=== PATIENT | male | born 1965 | race Caucasian/White ===

== ENCOUNTER → 2018-11-17 08:09 | Outpatient (CLI) | payer OTHER, SELFPAY ==
--- NOTE | 2018-11-17 | DI.US.S_ITS ---
PROCEDURE: US ABD AORTA ANEURYSM SCREEN INDICATIONS: ABDOMINAL AORTIC ANEURYSM SCREENING TECHNIQUE: Real time scanning was performed of the aorta and iliac arteries, with image documentation. COMPARISON: [facility], CT, ABDOMEN/PELVIS WITH CONTRAST, 08/01/2008, 9:27. FINDINGS: Aorta: Proximal aortic was obscured by bowel gas. Mid-aorta measures 2.3 cm. Distal aortic diameter is 2.2 cm. Iliac arteries: Right common iliac artery measures 1.4 cm. Left common iliac artery measures 1.7 cm. IMPRESSION: No evidence of abdominal aortic aneurysm. Dictated by: Gavino Wiley M.D. on 11/17/2018 at 9:22 Approved by: Gavino Wiley M.D. on 11/17/2018 at 9:34
== END ==
PROVIDERS: Family Provider Family Medicine; PCP Family Medicine; Visit Provider Family Medicine
DX: Z82.49 Family history of ischemic heart disease and other diseases of the circulatory system (principal)
CPT/HCPCS: 76706

== ENCOUNTER → 2019-03-02 15:27 | Outpatient (CLI) | payer OTHER, SELFPAY ==
--- NOTE | 2019-03-02 | DI.US.S_ITS ---
PROCEDURE: US PERIPH VENOUS LOW EXTREM LT INDICATIONS: DVT TECHNIQUE: Real-time imaging, as well as color and pulse Doppler interrogation, were performed of the lower extremity deep veins from the inguinal ligament to the popliteal fossa. COMPARISON: None. FINDINGS: There is left lower extremity D[place], with patient treatment by anticoagulation. Currently the study shows DVT within the superficial femoral vein and popliteal vein, partially occlusive from the mid superficial femoral vein into the calf area. IMPRESSION: Patient receiving ongoing therapy for DVT diagnosed [place]. Recurrent thrombosis seen and is within the popliteal vein and the superficial femoral vein. No comparison is available for review. The partially occlusive thrombus persists from the mid superficial femoral vein through the popliteal vein into the trifurcation region of the calf. Dictated by: Mike Foley M.D. on 03/02/2019 at 17:08 Approved by: Mike Foley M.D. on 03/02/2019 at 17:10
== END ==
PROVIDERS: PCP Family Medicine; Visit Provider Family Medicine
DX: I82.432 Acute embolism and thrombosis of left popliteal vein (principal); I82.412 Acute embolism and thrombosis of left femoral vein; I82.4Z2 Acute embolism and thrombosis of unspecified deep veins of left distal lower extremity
CPT/HCPCS: 93971

== ENCOUNTER → 2019-05-09 10:07 | Outpatient (CLI) | payer OTHER, SELFPAY ==
--- NOTE | 2019-05-09 | DI.US.S_ITS ---
PROCEDURE: US PERIP VENOUS LOW EXTREM LT INDICATIONS: Previously documented lower extremity DVT, evaluate for resolution. TECHNIQUE: Real-time imaging, as well as color and pulse Doppler interrogation, were performed of the lower extremity deep veins from the inguinal ligament to the popliteal fossa. COMPARISON: [facility], [facility] VENOUS LOW EXTREM LT, 03/02/2019, 16:42. FINDINGS: There is only a small degree of nonocclusive thrombus remaining at the left lower extremity popliteal vein extending to the posterior tibial vein. This represents a significant improvement from the comparison study when residual thrombus could be seen in the superficial femoral vein extending through the popliteal vein into the trifurcation region of the left calf. IMPRESSION: Only a small residual nonocclusive thrombus is seen within the popliteal vein extending to the left posterior tibial vein. Significant improvement from the comparison. Dictated by: Mike Foley M.D. on 05/09/2019 at 11:19 Approved by: Mike Foley M.D. on 05/09/2019 at 11:22
--- NOTE | 2019-10-31 14:07 | ONC.MSW ---
Description: New Referral Navigation Activity: [employer] reviewed referral and assessed urgency/acuity. Forwarded to scheduling for next available new consult appt.
== END ==
PROVIDERS: PCP Family Medicine; Visit Provider Family Medicine
DX: I82.432 Acute embolism and thrombosis of left popliteal vein (principal); I82.442 Acute embolism and thrombosis of left tibial vein
CPT/HCPCS: 93971

== ENCOUNTER → 2019-11-01 07:26 | Outpatient (CLI) | payer OTHER, SELFPAY ==
--- NOTE | 2019-11-01 | DI.US.S_ITS ---
PROCEDURE: [facility] VENOUS LOW EXTREM LT INDICATIONS: HISTORY OF DVT WITH LEG PAIN TECHNIQUE: Real-time imaging, as well as color and pulse Doppler interrogation, were performed of the lower extremity deep veins from the inguinal ligament to the popliteal fossa. COMPARISON: [facility], [facility] VENOUS LOW EXTREM LT, 05/09/2019, 10:25. [facility], [facility] VENOUS LOW EXTREM LT, 03/02/2019, 16:42. FINDINGS: There is nonocclusive filling defect in the distal popliteal vein to the trifurcation, consistent with chronic DVT. The common femoral and femoral veins are normally compressible, and free of intraluminal thrombus. IMPRESSION: Residual nonocclusive chronic DVT in the distal popliteal vein to trifurcation. Dictated by: Eriberto Mcneal M.D. on 11/01/2019 at 9:45 Approved by: Eriberto Mcneal M.D. on 11/01/2019 at 9:48
== END ==
PROVIDERS: PCP Family Medicine; Visit Provider Family Medicine
DX: M79.605 Pain in left leg (principal); I82.532 Chronic embolism and thrombosis of left popliteal vein
CPT/HCPCS: 93971

== ENCOUNTER → 2019-11-02 13:39 | Oncology outpatient (ONC) | payer OTHER, SELFPAY ==
[2019-11-02 14:16] VITALS: BP 137/86; PULSE 83; RESP 18; TEMP 37; O2SAT 98
--- NOTE | 2019-11-02 16:30 | ONC.CONS ---
History of Present Illness - Data of Consult Consult date: 11/02/19 Primary Care Provider: Shelli Carrasquillo MD - Consult Narrative Narrative: Diagnosis: Left lower extremity DVT in January 2019 History of present illness: Humberto Chew is a 54 year old male who is referred for further evaluation regarding DVT. 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 He works a 4 week on, 4 week off schedule. Each of these work cycles is accompanied by a prolonged airline flight lasting 24-27 hours. In January, he was traveling to [place] [facility]. On arrival there, he noticed some erythema and swelling in his left lower leg. It was initially thought perhaps to be an ankle injury. However over the next few days, the erythema progressed up the leg. There was increased swelling and pain. It was then thought that perhaps it was a spider bite. He then was transferred off of the oil [employer] to a local hospital. An ultrasound showed extensive DVT involving his left leg. He was started on anticoagulation with what sounds like low-molecular weight or unfractionated heparin and later transition to Xarelto. During that time, he developed an infection at the site of an IV on his arm. He required antibiotics for that but did eventually recover. Since he has been on the Xarelto, the pain and swelling in his leg has improved. He still has some occasional cramping. He notes trace edema on that side as well. He has not had any bleeding complications. He denies any epistaxis or gingival bleeding. No blood in the urine or stool. He has not had any shortness of breath cough for chest pain. No dizziness or lightheadedness. He denies any prior history of thrombosis. He did not have any trauma to the leg. He is not a smoker. He has had follow-up ultrasounds that have shown diminished but persistent, chronic appearing clot involving the distal popliteal vein. Since he has been on the Xarelto, he has noted some episodes of numbness and paresthesias involving his right hand and forearm. He has noticed increased cramps in his legs. He has been taking some electrolyte supplements as well as drinking a lot of fluids but it does not seem to been helping. He wonders if the Xarelto is causing the symptoms. His past medical history is positive for having a tonsillectomy as a child. He has not had any other surgeries. He has otherwise been quite healthy. His only prescription medication is Xarelto. He does he take some vitamins and electrolytes supplements. He is not allergic to any medications. Social history: He does not smoke or use alcohol. He does exercise regularly. 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 Currently, he has been doing less heavy weights and more aerobic type work. 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 Family history is negative for any thrombotic history. CC: Vimal Simmons MD Home Medications and Allergies Home Medications Medication Instructions Recorded Confirmed Type magnesium, potassium aspartate 1 cap PO DAILY 11/02/19 11/02/19 History ezqxutxensos-oiaodlfc-aejyuo 1 tab PO DAILY 11/02/19 11/02/19 History [Multivitamin 50 Plus] rivaroxaban [Xarelto] 20 mg DAILY 11/02/19 11/02/19 History Review of Systems - Patient Self-Reported Symptoms SR eye issues: Vision changes SR ears, nose, mouth, throat issues: Cough SR respiratory issues: Cough, Mucous SR Gastrointestinal issues: Diarrhea SR Musculoskeletal issues: Joint pain or swelling, Muscle pain or cramps, Cold hands or feet SR Neuro issues: Numbness or tingling Constitutional: normal activity level, normal exercise tolerance Ears, nose, mouth, throat: no lightheadedness, no epistaxis Cardiovascular: no chest pain, no palpitations, no syncope, no dyspnea on exertion Respiratory: no shortness of breath, no hemoptysis Gastrointestinal: no change in appetite, no abdominal pain Musculoskeletal: swelling, no redness, no weakness, no atrophy Integumentary: no rash Endocrine: no hormone therapy Hematologic/Lymphatic: no anemia, no enlarged lymph nodes Exam Vital signs: Vital Signs Temp Pulse Resp BP Pulse Ox 11/02/19 14:16 98.6 F 83 18 137/86 98 Intake and Output 11/02/19 11/02/19 11/02/19 07:59 15:59 23:59 Other: Weight 109.7 kg Patient Weight 11/02/19 23:59 Weight 109.7 kg - Constitutional positive no acute distress, positive average body habitus Comments: He is fit appearing. - Routine HEENT Exam Head: Present: normocephalic, atraumatic Eye: Present: EOMI, PERRL. Absent: conjunctival icterus, scleral injection ENT: Present: mucous membranes moist, oropharynx clear - Routine Neck Exam Present: supple. Absent: lymphadenopathy, thyromegaly - Routine Chest/Breast/Axilla Exam Axillae: Absent: lymphadenopathy - Routine Respiratory Exam Present: Clear to auscultation bilaterally. Absent: rales, wheezes - Routine Cardiovascular Exam Present: RRR, S1, S2. Absent: murmur - Routine Abdominal Exam Present: soft, normoactive bowel sounds. Absent: tenderness, organomegaly, mass - Routine Extremities Exam Absent: cyanosis, clubbing, edema, palpable cord - Routine Back/Spine Exam Back/Spine: Absent: vertebral tenderness - Routine Skin Exam Present: intact. Absent: petechiae, rash - Routine Neurological Exam Present: alert, oriented X3 - Routine Psychiatric Exam Present: normal affect, normal thought process Assessment and Plan (1) DVT (deep venous thrombosis) Current visit: Yes Status: Acute 54-year-old man with an episode of DVT involving his left lower extremity. This was provoked by a prolonged airplane flight. He has had improvement with anticoagulation. He has not had any bleeding complications. He is having some symptoms that he think might be related to the Xarelto however. With regards to duration of anticoagulation, for provoked 1st DVT, I think 3 months of therapy is generally adequate. He does have some findings of a chronic DVT in the left but I don't think are severe enough to require indefinite anticoagulation. His risk factor for thrombosis was prolonged airline flight. This is in his case not entirely reversible and his risk for having another thrombosis with prolonged flying is present. He has been using a compression garment while flying. I've recommended that he continue with this. This will certainly help to reduce symptoms of post phlebitic syndrome. Given that he is having some potential side effects of his anticoagulation and has completed an adequate course of treatment, I think it's reasonable to stop his anticoagulation but to have him take a dose of Xarelto on days when he is flying and for couple of days after. I think this will help reduce his risk of thrombosis during a prolonged airline flight but hopefully should reduce his risk of bleeding while he is working. I would be reasonable to take aspirin daily on days that he is not taking Xarelto. Given that he did have a provoked episode and does not have a family history, I don't think testing for inherited or acquired hypercoagulable syndromes would be helpful. If he does have a 2nd episode of thrombosis, then he would be candidate for indefinite anticoagulation. I have not scheduled a follow-up appointment for him here but would be happy to see him again in the future should new questions arise.
== END ==
LOC: ONC 13:40
PROVIDERS: PCP Family Medicine
DX: I82.402 Acute embolism and thrombosis of unspecified deep veins of left lower extremity (principal); Z79.01 Long term (current) use of anticoagulants
CPT/HCPCS: 99205; 99215

== ENCOUNTER → 2020-09-25 07:06 | Outpatient (CLI) | payer OTHER, SELFPAY ==
--- NOTE | 2020-09-25 | DI.MRI.S_ITS ---
PROCEDURE: MR SHOULDER RT WO CON INDICATIONS: CERVICAL RADUCUOPATHY,RIGHT SHOULDER PAIN TECHNIQUE: Noncontrast oblique coronal T2 fast spin echo with fat saturation, oblique sagittal T1 spin echo and T2 fast spin echo with fat saturation, axial T1 spin echo and T2 fast spin echo with fat saturation through the shoulder. COMPARISON: None. FINDINGS: Image quality: Excellent. Rotator cuff: There is full-thickness rupture involving distal supraspinatus at its insertion on humeral head with up to 1.9 cm medial retraction of torn tendon fibers to the level of acromion. Tendinosis and low to moderate grade articular surface partial thickness tear involving distal infraspinatus is also seen at its insertion on the humeral head extending to musculotendinous junction. There is distal subscapularis tendinosis and low-grade intrasubstance partial-thickness tear. Sagittal images demonstrate no significant muscle atrophy. Bones and bursae: No bone marrow contusions or fractures. Moderate acromioclavicular joint osteoarthritic changes are seen with downward osteophyte formation depressing the musculotendinous junction of supraspinatus. Small to moderate amount of joint effusion and subacromial subdeltoid bursal fluid is seen. Capsule and soft tissues: In the absence of intra-articular contrast, subtle signal abnormality involving posterior superior labrum at 10 to 11 o'clock position is seen. The glenohumeral ligaments appear intact. The long head of the biceps tendinosis and low to moderate grade partial-thickness tear is also noted. The rotator interval appears normal, without fibrosis. The coracohumeral ligament is normal in thickness. IMPRESSION: 1. Full-thickness rupture of distal supraspinatus at its insertion on the humeral head with up to 1.9 cm medial retraction of torn tendon fibers to the level of acromion. Distal infraspinatus tendinosis and low to moderate grade articular surface partial-thickness tear extending to musculotendinous junction. Distal subscapularis tendinosis and low-grade intrasubstance partial-thickness tear. 2. Moderate acromioclavicular joint osteoarthritis. Small amount of joint effusion and subacromial subdeltoid bursal fluid. 3. Suggestion of posterior superior labral tear at 10 to 11 o'clock position. 4. Tendinosis and low to moderate grade partial-thickness tear involving proximal intra-articular portion of long head of biceps. Dictated by: Hussain Schafer M.D. on 09/25/2020 at 9:01 Approved by: Hussain Schafer M.D. on 09/25/2020 at 9:14
--- NOTE | 2020-09-25 | DI.MRI.S_ITS ---
PROCEDURE: MR CERVICAL SPINE WO CON INDICATIONS: CERVICAL RADUCUOPATHY, RIGHT SHOULDER PAIN TECHNIQUE: Noncontrast sagittal T1 spin echo and T2 fast spin echo, sagittal STIR, foraminal oblique sagittal T2 fast spin echo, and axial gradient echo or T2 fast spin echo through the cervical spine. COMPARISON: [facility], CERVICAL SPINE 2 OR 3 VIEWS, 05/22/2017, 17:19. FINDINGS: Image quality: Diagnostic, with note made of motion artifact. Alignment and Curvature: There is straightening of the normal cervical lordosis. No focal AP alignment abnormality is seen. Bone Marrow: Marrow demonstrates normal overall signal. Spinal Cord: Visualized spinal cord has normal size and signal. No cerebellar tonsillar herniation. Paraspinous Soft Tissues: No paravertebral masses. Prevertebral soft tissues are normal in thickness. C2-C3: The disc height is well-preserved. Loss of disc signal is seen at this level. A mild degree of generalized disc osteophyte complex is seen. Mild to moderate left-sided and no right-sided facet hypertrophy is seen. There is mild to moderate left-sided and no right-sided neural foraminal narrowing seen. The central canal is widely patent. C3-C4: The disc height is well-preserved. Loss of disc signal is seen at this level. A mild degree of generalized disc osteophyte complex is seen. Mild facet joint hypertrophy is seen. There is moderate to severe left-sided and at least moderate right-sided neural foraminal narrowing seen. Mild central canal narrowing is seen. C4-C5: The disc height is well-preserved. Loss of disc signal is seen at this level. Moderate generalized disc osteophyte complex is seen. There is mild to moderate right-sided and moderate left-sided facet hypertrophy seen. There is moderate to severe left-sided and at least moderate right-sided neural foraminal narrowing seen. Mild central canal narrowing is seen. C5-C6: Loss of disc signal is seen. Minimal loss of disc height is seen. Mild to moderate disc osteophyte complex is seen. There is mild to moderate right-sided and moderate left-sided facet hypertrophy seen. There is moderate to severe bilateral neural foraminal narrowing seen, right worse than left. Mild central canal narrowing is seen. C6-C7: Moderate loss of disc height is seen. Loss of disc signal is seen. Moderate generalized disc osteophyte complex is seen. Mild to moderate facet hypertrophy is seen. At least moderate bilateral neural foraminal narrowing can be seen. Mild to moderate central canal narrowing is seen. C7-T1: No significant abnormality is seen. IMPRESSION: Multiple levels of cervical spine degenerative change are seen, which are most prominent inferiorly. Dictated by: Joseph Camargo M.D. on 09/25/2020 at 8:03 Approved by: Joseph Camargo M.D. on 09/25/2020 at 8:07
== END ==
PROVIDERS: PCP Family Medicine; Referring Provider Family Medicine; Visit Provider Family Medicine
DX: M47.22 Other spondylosis with radiculopathy, cervical region (principal); M25.511 Pain in right shoulder; M75.121 Complete rotator cuff tear or rupture of right shoulder, not specified as traumatic; M19.011 Primary osteoarthritis, right shoulder; S46.111A Strain of muscle, fascia and tendon of long head of biceps, right arm, initial encounter
CPT/HCPCS: 72141; 73221

== ENCOUNTER → 2021-04-22 08:29 | Outpatient (CLI) | payer OTHER, SELFPAY ==
[2021-04-22 11:40] LABS: COVID19 -Nasal RAPID Negative (Negative)
== END ==
PROVIDERS: PCP Family Medicine; Visit Provider Physician Assistant
DX: Z01.812 Encounter for preprocedural laboratory examination (principal); Z20.822 Contact with and (suspected) exposure to COVID-19
CPT/HCPCS: 87635

== ENCOUNTER → 2021-04-24 07:41 | Outpatient (CLI) | payer OTHER, SELFPAY ==
--- NOTE | 2021-04-24 | DI.NM.S_ITS ---
PROCEDURE: NM SEA PERF SPECT REST & STR Rest and exercise myocardial perfusion SPECT with gated imaging and ejection fraction RADIOPHARMACEUTICAL: 13.4 mCi Tc-99m sestamibi IV at rest and 24.7 mCi Tc-99m sestamibi IV at peak exercise. A one day-protocol was performed. INDICATIONS: Other chest pain TECHNIQUE: Radiopharmaceutical was injected at peak stress test, and also at rest. SPECT images were obtained. SPECT myocardial perfusion images were displayed in short axis, horizontal long axis, and vertical long axis views. Gated images were reviewed using [employer] software. COMPARISON: None. CARDIAC STRESS: A standard [place] treadmill exercise tolerance test was performed by the patient under the supervision of an attending staff. The patient exercised for 10 minutes and 40 seconds; functional aerobic impairment (NORTH) is -14%. Hemodynamic data: There is normal blood pressure and heart rate response to exercise stress. Patient achieved 98% of maximum predicted heart rate at peak exercise. Symptoms: Patient denied chest pain during exercise. EKG: No diagnostic EKG changes of ischemia; frequent PVCs during recovery. FINDINGS: Raw data: There is good myocardial labeling by radiotracer. No significant motion artifacts. Jjji-jn-mbobl ratio is 0.27 (normal is less than 0.38 for sestamibi tracer, and less than 0.50 for thallium tracer). Left ventricle function: Gated images demonstrate normal left ventricle wall thickening. No segmental wall motion abnormality. No transient ischemic dilation; TID is 0.87 (normal less than 1.3). The left ventricle resting end-diastolic volume is 141 mL. Left ventricle stress ejection fraction is 70%; normal values are above 45%. Myocardial perfusion: There is normal distribution of activity in the left and right ventricular myocardium. No fixed or reversible perfusion defects. IMPRESSION: Low risk, normal treadmill nuclear stress test 1) No perfusion evidence of ischemia or infarction. 2) Normal left ventricular size, wall motion, and systolic function (EF 70% post stress). 3) No ECG evidence of ischemia. 4) Frequent PVCs during recovery. 5) No angina during the study. 6) Above average exercise tolerance (12.8 METs, NORTH -14%). Target heart rate achieved. Appropriate BP response to exercise. 7) No prior nuclear stress test available for comparison. Dictated by: Elida Gibbs MD on 04/24/2021 at 17:13 Approved by: Elida Gibbs MD on 04/24/2021 at 17:16
== END ==
PROVIDERS: PCP Family Medicine; Referring Provider Family Medicine; Visit Provider Family Medicine
DX: R07.89 Other chest pain (principal)
CPT/HCPCS: 78452; 93017; A9502

== ENCOUNTER → 2022-08-20 07:09 | Outpatient (CLI) | payer BC, SELFPAY ==
--- NOTE | 2022-08-20 | DI.MRI.S_ITS ---
PROCEDURE: MR LUMBAR SPINE WO CON INDICATIONS: Radiculopathy, lumbar region TECHNIQUE: Noncontrast sagittal T1 spin echo and T2 fast echo, sagittal STIR, and T2 fast spin echo through the lumbar spine. In cases with scoliosis, additional coronal T2 fast spin echo may be performed. COMPARISON: None. FINDINGS: Image quality: Excellent. Alignment and Curvature: There is mild retrolisthesis seen at L2-L3 and L3-L4. Minimal anterolisthesis is seen at L5-S1. No associated pars defects are seen. Bone Marrow: Marrow is of normal overall signal. Scattered foci are seen, which are hyperintense on T1-weighted and T2-weighted imaging, which are most consistent with benign vertebral body hemangiomas. No acute vertebral body compression fractures. Spinal Cord: Conus medullaris terminates at the L1 level. Visualized cord demonstrates normal signal and size. Paraspinous Soft Tissues: No paravertebral masses. T12-L1: Normal appearance. L1-L2: Normal appearance. L2-L3: Mild loss of disc height is seen. Loss of disc signal is seen. Moderate disc bulge is seen, which is eccentric to the left. There is a superimposed central disc protrusion. Moderate bilateral neural foraminal narrowing can be seen, right worse than left. Moderate central canal narrowing is seen. L3-L4: The disc height is well-preserved. Loss of disc signal is seen at this level. Moderate generalized disc bulge is seen. Mild facet joint hypertrophy is seen. There is at least moderate left-sided and moderate right-sided neural foraminal narrowing. Mild to moderate central canal narrowing is seen. L4-L5: The disc height is well-preserved. Loss of disc signal is seen at this level. Moderate generalized disc bulge is seen. There is a superimposed central disc protrusion. Moderate facet joint hypertrophy is seen. There is moderate to severe bilateral neural foraminal narrowing seen, left worse than right. There is a degree of compression seen upon the exiting nerve roots. At least moderate central canal narrowing is seen. L5-S1: The disc height is well-preserved. Loss of disc signal is seen at this level. Mild to moderate disc bulge is seen. At least moderate facet hypertrophy is seen at this level. There is moderate to severe bilateral neural foraminal narrowing seen, with an associated a degree of compression seen upon the exiting nerve roots. No significant central canal narrowing is seen. IMPRESSION: Multiple levels of lumbar spine degenerative change are seen, which are overall worst at L4-L5 and L5-S1. Several sites of significant neural foraminal narrowing can be seen, with associated exiting nerve root compression. Dictated by: Joseph Camargo M.D. on 08/20/2022 at 10:43 Approved by: Joseph Camargo M.D. on 08/20/2022 at 10:46
== END ==
PROVIDERS: Family Provider Family Medicine; PCP Family Medicine; Referring Provider Family Medicine; Visit Provider Family Medicine
DX: M47.26 Other spondylosis with radiculopathy, lumbar region (principal); M47.27 Other spondylosis with radiculopathy, lumbosacral region; M48.061 Spinal stenosis, lumbar region without neurogenic claudication; M48.07 Spinal stenosis, lumbosacral region
CPT/HCPCS: 72148

== ENCOUNTER → 2022-08-28 14:03 | Outpatient (CLI) | payer BC, SELFPAY | PROVIDERS: Family Provider Family Medicine; PCP Family Medicine; Referring Provider Family Medicine; Visit Provider Family Medicine | DX: M54.2 Cervicalgia (principal); M54.16 Radiculopathy, lumbar region; R20.2 Paresthesia of skin | CPT/HCPCS: 95886; 95910 ==

== ENCOUNTER → 2022-09-11 09:23 | Outpatient (CLI) | payer BC, SELFPAY | PROVIDERS: Family Provider Family Medicine; PCP Family Medicine; Referring Provider Family Medicine; Visit Provider Family Medicine | DX: M54.12 Radiculopathy, cervical region (principal); R20.2 Paresthesia of skin; M54.16 Radiculopathy, lumbar region | CPT/HCPCS: 95885; 95886; 95912 ==

== ENCOUNTER 2022-09-23 20:58 | Emergency (ER) | payer BC, SELFPAY ==
--- NOTE | 2022-09-23 21:13 | DI.RAD.S_ITS ---
PROCEDURE: XR KNEE RT 3V INDICATIONS: pain, felt a pop TECHNIQUE: 3 views of the knee were acquired. COMPARISON: [facility], , KNEE 3V RIGHT, 10/24/2014, 11:17. FINDINGS: Bones: No fractures or dislocations. No suspicious bony lesions. There is mild medial femorotibial joint space narrowing seen, with associated remodeling changes including subchondral sclerosis and osteophyte formation along the jointline. On the sunrise view, there is moderate to severe lateral patellofemoral joint space narrowing seen. Osteophyte formation can be seen along the margins of the patella. Soft tissues: There is a moderate joint effusion. No suspicious soft tissue calcifications. IMPRESSION: No acute bony abnormality is seen. Moderate joint effusion. Underlying degenerative changes are seen, which are worst involving the lateral patellofemoral compartment. These degenerative changes are progressed compared to 2014. If it would be helpful for clinical management decision making, please consider a dedicated, scheduled knee MRI for further evaluation (assuming that there is no contraindication). Dictated by: Joseph Camargo M.D. on 09/23/2022 at 21:34 Approved by: Joseph Camargo M.D. on 09/23/2022 at 21:35
--- NOTE | 2022-09-24 00:29 | ED.LOWEXIN ---
HPI - Extremity Injury (Lower) General Chief Complaint: Extremity Injury, Lower Stated Complaint: rt knee pain Time Seen by Provider: 09/24/22 00:29 Source: patient Mode of arrival: Wheelchair History of Present Illness HPI Narrative: Patient is a healthy 57-year-old male who has a remote history of DVT was on Xarelto now on aspirin, hypertension, presents with right knee pain. States that he stood up around 7:00 p.m. here to very loud pop dropped him to his knees. He has some mild swelling hurts to bend and move it. He has not taken anything for pain. No numbness tingling or weakness. Related Data Home Medications Medication Instructions Recorded Confirmed magnesium aspartate-potassium 1 cap PO DAILY 11/02/19 11/02/19 aspartate 250 mg-250 mg capsule fozkihujphyj-fqloazzh-hluvoi 1 tab PO DAILY 11/02/19 11/02/19 tablet (Multivitamin 50 Plus tablet) rivaroxaban 20 mg tablet (Xarelto) 20 mg DAILY 11/02/19 11/02/19 Previous Rx's Medication Instructions Recorded hydrocodone 5 mg-acetaminophen 325 1 tab PO Q6H PRN pain #10 tabs 09/24/22 mg tablet Allergies Allergy/AdvReac Type Severity Reaction Status Date / Time No Known Drug Allergies Allergy Verified 09/24/22 00:47 Review of Systems Review of Systems Narrative: GENERAL: Denies chills,fever HEENT: Denies throat pain RESPIRATORY: Denies dyspnea, cough, wheezing CARDIOVASCULAR: Denies chest pain, palpitations GASTROINTESTINAL: Denies nausea, vomiting MUSCULOSKELETAL: See HPI SKIN: No rash, no laceration, no pruritus NEUROLOGIC: Denies weakness, dizziness, headache, numbness 8 point review of systems is negative except for those stated above and HPI Exam Initial Vital Signs Initial Vital Signs: GENERAL: Well-appearing, well-nourished and in no acute distress. CARDIOVASCULAR: peripheral pulses in tact, cap refill <2 sec RESPIRATORY: No respiratory distress, speaks in full sentences without difficulty EXTREMITIES: Normal range of motion, no clubbing or edema. Neurovascularly intact Right leg mild fluid is able to flex and extend distal pedal pulse intact knee is stable but tender NEUROLOGICAL: Cranial nerves II through XII grossly intact. Normal gait and speech. SKIN: Warm, dry, no petechiae, no rashes or lesions. Course Orders Ordered: ED Orders 09/23/22 21:13 XR knee RT 3V Stat Discontinued Medications Hydrocodone Bitart/Acetaminophen (Hydrocodone/Acet 5/325 Prepack) 1 bottle MISC SEEINSTR ONE Stop: 09/24/22 00:35 Last Admin: 09/24/22 00:45 Dose: 1 bottle Documented By: GERRY MDM - Extremity Injury (Lower) Imaging Data Extremity x-ray #1: Radiologist's Impression: Signed Patient: Humberto Chew MR#: [id number] : 1965 Acct:[id number] Age/Sex: 57 / M Date of Service: 09/23/22 Loc: ED Accession Number: [id number] ?? Procedure: XR knee RT 3V Ordering Provider: Sherly Castaneda D.O. PROCEDURE:? XR KNEE RT 3V ? INDICATIONS:? pain, felt a pop ? TECHNIQUE:? 3 views of the knee were acquired.? ? COMPARISON:? [facility], , KNEE 3V RIGHT, 10/24/2014, 11:17. ? FINDINGS:? ? Bones:? No fractures or dislocations.? No suspicious bony lesions.? ? There is mild medial femorotibial joint space narrowing seen, with associated remodeling changes including subchondral sclerosis and osteophyte formation along the jointline.? ? On the sunrise view, there is moderate to severe lateral patellofemoral joint space narrowing seen. Osteophyte formation can be seen along the margins of the patella. ? Soft tissues:? There is a moderate joint effusion.? No suspicious soft tissue calcifications.? ? ? IMPRESSION:? No acute bony abnormality is seen. ? Moderate joint effusion. ? Underlying degenerative changes are seen, which are worst involving the lateral patellofemoral compartment.? These degenerative changes are progressed compared to 2014. ? If it would be helpful for clinical management decision making, please consider a dedicated, scheduled knee MRI for further evaluation (assuming that there is no contraindication).? ? ? Dictated by: Joseph Camargo M.D. on 09/23/2022 at 21:34 ? ? MDM Narrative Medical decision making narrative: Patient probably has a knee sprain or ligament tear. Will need an outpatient MRI not indicated at this time. Knee brace crutches and pain medications given. Discharge Plan Departure Patient Disposition: Home Clinical Impression: Sprain of knee Instructions: DI for Knee Sprain Activity Restrictions/Additional Instructions: *You have been diagnosed with right knee sprain *What to do: At this time wear knee brace as you needed. Use crutches as needed as well. Ice 20-30 minutes at a time. You will likely need an outpatient MRI please talk to your PCP about this. *Continue to take medications as directed [place] 1 tablet every 6 hours if needed for severe pain *Follow up with your primary care provider in 2-3 days or call [phone] *Return to ER if you should have increasing pain numbness tingling weakness or any new, worsening or concerning symptoms CONTROLLED SUBSTANCE DISCHARGE (Narcotoic/benzodiazepine/Flexeril/Phenergan) 1. You have been prescribed narcotic medications, it does have acetaminophen/Tylenol/paracetamol in it, DO NOT TAKE MORE THAN 4,00mg in 24 hours of Tylenol. TRAMADOL DOES NOT CONTAIN TYLENOL 2. Please understand that we cannot provide further refills of narcotics, benzodiazepines or controlled substances through the ED and her pain management will need to be through your provider. 3. While on these medications you cannot drive or operate heavy machinery. 4. You cannot sign legal documents or perform any duties such as this. 5. As long as you're taking opiate pain medications he should also be taking a stool softener such as Colace, Dulcolax, MiraLAX or prune juice, to help avoid constipation. Prescriptions: New hydrocodone-acetaminophen 5-325 mg tablet 1 tab PO Q6H PRN (Reason: pain) Qty: 10 0RF No Action Multivitamin 50 Plus Tablet 1 tab PO DAILY Xarelto 20 mg Tablet 20 mg DAILY magnesium, potassium aspartate 250-250 mg Capsule 1 cap PO DAILY Referrals: Shelli Carrasquillo MD [Primary Care Provider] - Visit Report Forms: Patient Portal/API
[2022-09-24] MEDS: HYDROCODONE/ACET 5/325 PREPACK 1 BOTTLE MISC (00:45)
== END 2022-09-24 00:57 | disposition home or self-care (01) ==
PROVIDERS: Emergency Provider Emergency Medicine; Family Provider Family Medicine; PCP Family Medicine
DX: S83.91XA Sprain of unspecified site of right knee, initial encounter (principal); X58.XXXA Exposure to other specified factors, initial encounter
CPT/HCPCS: 73562; 99283

== ENCOUNTER → 2022-09-27 07:49 | Outpatient (CLI) | payer BC, SELFPAY ==
--- NOTE | 2022-09-27 07:52 | DI.MRI.S_ITS ---
PROCEDURE: MR KNEE RT WO CON INDICATIONS: Pain in right knee TECHNIQUE: Noncontrast sagittal PD fast spin echo and T2 fast spin echo with fat saturation, sagittal 3-D FLASH with fat saturation; coronal T1 spin echo and PD fast spin echo with fat saturation, and axial PD fast spin echo with fat saturation through the knee. COMPARISON: None. FINDINGS: Image quality: Excellent. Menisci: Horizontal oblique tear involving posterior horn of medial meniscus is seen extending to inferior articulating surface. Lateral meniscus is intact. Moderate grade partial-thickness tear involving posterior medial meniscal root ligament is seen. Cruciate ligaments: The anterior and posterior cruciate ligaments appear intact. Medial structures: The medial collateral ligament appears mildly thickened. The posterior oblique ligament, semimembranosus tendon insertions, oblique popliteal ligament, and meniscocapsular junction appear intact. Visualized portions of the pes anserinus tendons appear normal. No abnormal bursal fluid. Lateral structures: The lateral collateral ligament, long and short heads of the biceps femoris tendon appear intact. Low-grade strain/partial-thickness tear involving proximal popliteus muscle extending to musculotendinous junction is seen. Iliotibial band appears normal. Anterior structures: Distal quadriceps tendinosis is seen. Patellar tendon is intact. Patellar alignment is normal. No femoral trochlear dysplasia or ventral trochlear prominence. No edema in the infrapatellar fat pad. Bones and cartilage: No bone marrow contusions or fractures. 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 Joint space: There is moderate knee joint fluid. No Perla's cyst. Normal appearing synovial plicae are incidentally noted. IMPRESSION: 1. Horizontal oblique tear involving posterior horn of medial meniscus extending to inferior articulating surface. Lateral meniscus is intact. Moderate grade partial-thickness tear involving posterior medial meniscal root ligament. 2. Cruciate ligaments are intact. Low-grade MCL sprain. 3. 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 4. Distal quadriceps tendinosis. Patellar tendon is intact. 5. Low-grade partial-thickness tear involving proximal popliteus muscle extending to musculotendinous junction. Dictated by: Hussain Schafer M.D. on 09/29/2022 at 8:54 Approved by: Hussain Schafer M.D. on 09/29/2022 at 9:13
== END ==
PROVIDERS: Family Provider Family Medicine; PCP Family Medicine; Referring Provider Family Medicine; Visit Provider Family Medicine
DX: S83.241A Other tear of medial meniscus, current injury, right knee, initial encounter (principal); S83.411A Sprain of medial collateral ligament of right knee, initial encounter; S76.811A Strain of other specified muscles, fascia and tendons at thigh level, right thigh, initial encounter; M17.11 Unilateral primary osteoarthritis, right knee; M22.41 Chondromalacia patellae, right knee; M25.561 Pain in right knee
CPT/HCPCS: 73721

== ENCOUNTER → 2023-03-04 16:18 | Outpatient (CLI) | payer BC, SELFPAY ==
--- NOTE | 2023-03-04 16:21 | DI.RAD.S_ITS ---
PROCEDURE: XR CHEST 2V INDICATIONS: ACUTE COUGH TECHNIQUE: 2 views of the chest were acquired. COMPARISON: None. FINDINGS: Surgical changes and devices: None. Lungs and pleura: Lungs are clear. No pleural effusions or pneumothorax. Mediastinum: Mediastinal contours are normal. Heart size is normal. Bones and chest wall: No suspicious bony abnormalities. Soft tissues appear unremarkable. IMPRESSION: No acute process. Dictated by: Daniel Kee M.D. on 03/05/2023 at 11:45 Transcribed by: THI on 03/05/2023 at 11:46 Approved by: Daniel Kee M.D. on 03/05/2023 at 16:49
[2023-03-04 16:47] LABS: Add Manual Diff / Slide Review NO; Basophils Absolute Auto 100 /uL (0-100); Basophils Percent Auto 0.6 % (0-2); Eosinophils Absolute Auto 100 /uL (0-450); Eosinophils Percent Auto 0.4 % (2-4); Hematocrit 42.6 % (41-53); Hemoglobin 14.5 g/dL (13.5-17.5); Lymphocytes Absolute Auto 1800 /uL (1100-4500); Lymphocytes Percent Auto 11.7 % (25-40); Mean Corpuscular HGB Conc 34.1 % (30-36); Mean Corpuscular Hemoglobin 31.1 PG (26-34); Mean Corpuscular Volume 91.1 fL (80-100); Monocytes Absolute Auto 1200 /uL (0-900); Neutrophils Absolute Auto 12000 /uL (1500-7000); Neutrophils Percent Auto 79.3 % (50-75); Platelet Count 202 X10^3/uL (150-400); Red Blood Cell Count 4.68 X10^6/uL (4.5-5.9); Red Cell Distribution Width 12.5 % (11.6-14.8); White Blood Cell Count 15.2 X10^3/uL (4.5-11.0)
[2023-03-04 16:55] LABS: Monotest Negative (Negative)
[2023-03-04 17:32] LABS: Alanine Aminotransferase 36 IU/L (<50); Albumin 3.8 g/dL (3.5-5.0); Albumin Globulin Ratio 1.3 (1.0-2.8); Alkaline Phosphatase 72 U/L (38-126); Aspartate Aminotransferase 24 IU/L (17-59); BUN Creatinine Ratio 19.8 (6-22); Bilirubin Total 0.7 mg/dL (0.2-1.3); Blood Urea Nitrogen 16 mg/dL (9-20); Calcium 8.7 mg/dL (8.4-10.2); Carbon Dioxide 25 mmol/L (22-32); Chloride 101 mmol/L (98-107); Estimated Glomerular Filt Rate > 60 mL/min (>60); Glucose 210 mg/dL (70-100); HEMOLYSIS < 15 (0-50); Potassium 3.9 mmol/L (3.4-5.1); Sodium 136 mmol/L (137-145); Total Protein 6.8 g/dL (6.3-8.2)
== END ==
PROVIDERS: Family Provider Family Medicine; PCP Family Medicine; Referring Provider Family Medicine; Visit Provider Family Medicine
DX: J01.90 Acute sinusitis, unspecified (principal); R05.1 Acute cough
CPT/HCPCS: 36415; 71046; 80053; 85025; 86318

== ENCOUNTER → 2023-06-29 08:30 | Outpatient (CLI) | payer BC, SELFPAY ==
--- NOTE | 2023-06-29 08:32 | DI.RAD.S_ITS ---
PROCEDURE: XR LUMBAR SPINE MIN 4V INDICATIONS: BACK PAIN TECHNIQUE: 5 views of the lumbar spine were acquired, including bilateral oblique views. COMPARISON: None. FINDINGS: Bones: 5 nonrib-bearing vertebrae are present. Minimal retrolisthesis of L2 on L3 and L3 on L4. Minimal anterolisthesis of L4 on L5. Facet arthropathy, worse at L4-5 and L5-S1. Mild disc height loss. Mild anterior osteophyte formation. No vertebral body compression fractures. No suspicious bony lesions. Soft tissues: Overlying bowel gas pattern is normal. No suspicious soft tissue calcifications. Oblique images: No definite pars defects. IMPRESSION: Degenerative changes of the lumbar spine. No vertebral body compression deformities. Dictated by: Tod Reynolds M.D. on 06/29/2023 at 10:11 Approved by: Tod Reynolds M.D. on 06/29/2023 at 10:12
== END ==
PROVIDERS: Family Provider Family Medicine; PCP Family Medicine; Referring Provider Physical Medicine & Rehabilitation; Visit Provider Physical Medicine & Rehabilitation
DX: M47.816 Spondylosis without myelopathy or radiculopathy, lumbar region (principal); M47.817 Spondylosis without myelopathy or radiculopathy, lumbosacral region; M54.9 Dorsalgia, unspecified
CPT/HCPCS: 72110

== ENCOUNTER 2023-08-25 09:39 | Outpatient (CLI) | payer BC, SELFPAY ==
[2023-08-25] VITALS (8 sets, daily range): BP systolic 116–140; BP diastolic 77–91; PULSE 61–80; RESP 13–19; TEMP 36.6; O2SAT 94–98
--- NOTE | 2023-08-25 09:40 | DI.RAD.S_ITS ---
PROCEDURE: PAIN L INTERLAMINAR/CAUDAL INJ INDICATIONS: SPONDYLOSIS COMPARISON: [facility], CR, XR LUMBAR SPINE MIN 4V, 06/29/2023, 8:38. FINDINGS: Fluoroscopic spot filming was performed to verify placement of a spinal needle at the L4-L5 level, as labeled on the films. Appropriate location of the needle tip was confirmed by injection of iodinated contrast. IMPRESSION: Intraprocedural examination within normal limits. Dictated by: Joseph Camargo M.D. on 08/25/2023 at 17:15 Approved by: Joseph Camargo M.D. on 08/25/2023 at 17:16
[2023-08-25] MEDS: MIDAZOLAM 2 MG/2 ML VIAL IV (10:11)
[2023-08-25] MEDS: BUPIVACAINE 0.25% (PF) VIAL 2 ML INJ (10:17)
[2023-08-25] MEDS: BETAMETHASONE 30 MG/5 ML MDV 6 MG INJ (10:17)
[2023-08-25] MEDS: DEXAMETHASONE 10 MG/ML VIAL INJ (10:17)
[2023-08-25] MEDS: iopamidoL 15 ML VIAL 3 ML INJ (10:17)
--- NOTE | 2023-08-25 10:24 | P.PCN_ITS ---
Date/Time/Diagnoses Date of procedure: 08/25/23 Time of procedure: 10:24 Pre-procedure diagnosis: 1. HNP WITH RADICULAR FEATURES, 2. MULTILEVEL CENTRAL STENOSIS, Post-procedure diagnosis: same Procedure Notes Procedure: 1. FLUOROSCOPICALLY GUIDED CONTRAST CONTROLLED INTERLAMINAR EPIDURAL STEROID INJECTION -L4/5 Indications: Humberto is referred by Dr. Carrasquillo for treatment of Bilateral Foraminal Stenosis R>L LE symptoms. Physician: Mark Anthony Mohamud Total Fluoroscopy time (seconds): 7 Total sedation minutes: 10 Complications: none Procedure in detail & Post-procedure care: FINDINGS Multilevel Central Spinal Stenosis with Nerve Root Compression DESCRIPTION OF PROCEDURE Fluoroscopically guided, contrast-controlled L4/5 translaminar epidural steroid injection. Following review of allergy and review of potential side effects and complications, including, but not necessarily limited to, infection, allergic reaction, local tissue breakdown, temporary as well as permanent nerve injury, paralysis, stroke and possible , the patient indicated that the patient understood and agreed to proceed. An informed consent document was signed by the patient, witnessed by a nurse, and placed in the patient's chart. Additionally, other treatment options including modalities, medications, and physical therapy were reviewed with the patient. After review of previous anaesthesic history and IV conscious sedation the patient was deemed safe to proceed with today?s procedure with IV conscious sedation as ASA class II designation. Safety time-out was performed to confirm patient ID, procedure to be performed and site of procedure. IV sedation was accomplished with a combination of 2mg of Versed was administered by the RN after DO order, titrated to patient comfort during the course of the procedure while the patient remained responsive to all verbal commands In the prone position, following sterile prep and drape of the lumbar region, the L4/5 translaminar space was identified fluoroscopically. The skin was anesthetized via a 25-gauge, 1.5inch needle with 1% lidocaine solution. At this point, a 22-gauge short bevel spinal needle was atraumatically introduced and a dvanced under fluoroscopic guidance into the region of the L4/5 translaminar space. Depth was confirmed on lateral view. Radiological data, including multiple fluoroscopic views of the lumbar spine, reveal a spinal needle at the L4/5 translaminar space. Lateral views then show placement of the needle in the epidural space. Subsequent views show contrast material flowing superiorly and inferiorly in the epidural space. No vascular or intrathecal uptake is observed. At this point, using loss of resistance technique with saline and air, the epidural space was entered. This was confirmed following negative aspiration with injection of approximately 1.5cc of Isovue 200, showing excellent epidural flow without vascular or intrathecal uptake. At this point, 1cc of 1% lidocaine solution combined with 2cc or 10mg of dexamethasone and 6mg betamethasone was injected without incident. The patient tolerated the procedure well without signs or symptoms of complications prior to transfer to the recovery area continued monitoring without incident. The patient was then transferred to the recovery area where they were observed for an appropriate period of time after the injection. The patient reported a VAS score of 7 prior to the procedure and a post- procedure VAS of 1. POST OP INSTRUCTIONS The patient was provided a Pain Log to continue to record their response to the target-specific procedure prior to follow-up visit with their referring physician. Additionally, specific post-injection care instructions and a contact number to our office were provided if concerns arise regarding possible complications associated with the procedure are suspected.
== END 2023-08-25 10:45 | disposition home or self-care (01) ==
LOC: RAD 09:39
PROVIDERS: Family Provider Family Medicine; PCP Family Medicine; Referring Provider Physical Medicine & Rehabilitation; Visit Provider Physical Medicine & Rehabilitation
DX: M54.16 Radiculopathy, lumbar region (principal); M48.062 Spinal stenosis, lumbar region with neurogenic claudication
CPT/HCPCS: 62323; 99152; J0702; J1100; J2250; J3490

== ENCOUNTER 2023-11-17 07:33 | Outpatient (CLI) | payer BC, SELFPAY ==
[2023-11-17] VITALS (8 sets, daily range): BP systolic 101–129; BP diastolic 58–83; PULSE 73–87; RESP 16–20; TEMP 36.6; O2SAT 94–97
--- NOTE | 2023-11-17 08:00 | DI.RAD.S_ITS ---
PROCEDURE: PAIN L/S TRANSFORAM INJECT [place] COMPARISON: [facility], XA, PAIN L INTERLAMINAR/CAUDAL INJ, 08/25/2023, 10:13. CR, XR LUMBAR SPINE MIN 4V, 06/29/2023, 8:38. INDICATIONS: LUMBAR STENOSIS FINDINGS: 6 intraoperative fluoroscopy images demonstrate needle placement and injection at L4-L5 bilaterally. IMPRESSION: Fluoroscopy for pain management. Dictated by: Eriberto Mcneal M.D. on 11/17/2023 at 11:37 Approved by: Eriberto Mcneal M.D. on 11/17/2023 at 11:52
[2023-11-17] MEDS: MIDAZOLAM 2 MG/2 ML VIAL IV (08:10)
[2023-11-17] MEDS: BETAMETHASONE 30 MG/5 ML MDV 12 MG INJ (08:13)
[2023-11-17] MEDS: iopamidoL 15 ML VIAL 3 ML INJ (08:13)
[2023-11-17] MEDS: BUPIVACAINE 0.25% (PF) VIAL 5 ML SUBCUT (08:14)
[2023-11-17] MEDS: DEXAMETHASONE 10 MG/ML VIAL 20 MG INJ (08:14)
--- NOTE | 2023-11-17 08:29 | PM.PROC.IR.1 ---
Date/Time/Diagnoses Date of procedure: 11/17/23 Time of procedure: 08:29 Pre-procedure diagnosis: 1. FORAMINAL STENOSIS WITH LE SYMPTOMS Procedure Notes Procedure: 1. FLUOROSCOPICALLY GUIDED CONTRAST CONTROLLED TRANSFORAMINAL EPIDURAL STEROID INJECTION - BILATERAL L4/5 TFESI Indications: Humberto is referred by Dr. Carrasquillo for treatment of Foraminal Stenosis with bilateral LE Symptoms Physician: Mark Anthony Mohamud Total Fluoroscopy time (seconds): 16 Total sedation minutes: 15 Complications: none Procedure in detail & Post-procedure care: FINDINGS Foraminal Nerve Root Compression secondary to disc disease and facet hypertrophy DESCRIPTION OF PROCEDURE Following review of allergy and review of potential side effects and complications, including, but not necessarily limited to, infection, allergic reaction, local tissue breakdown, stroke, temporary or permanent nerve injury, paralysis, and possible , the patient indicated that the patient understood and agreed to proceed. An informed consent document was signed by the patient, witnessed by a nurse, and placed in the patient's chart. Additionally, other treatment options including medications, modalities, and physical therapy were reviewed with the patient. After review of previous anaesthesic history and IV conscious sedation the patient was deemed safe to proceed with today?s procedure with IV conscious sedation as ASA class II designation. Safety time-out was performed to confirm patient ID, procedure to be performed and site of procedure. IV sedation was accomplished with a combination of 2mg of Versed was administered by the RN after DO order, titrated to patient comfort during the course of the procedure while the patient remained responsive to all verbal commands In the prone position following sterile prep and drape of the lumbar region, the right L4/5 posterior neuroforamen was identified fluoroscopically. The skin was anesthetized via a 25-gauge 1.5-inch needle with 1% lidocaine solution. At this point, a 25-gauge 3.5-inch spinal needle was atraumatically introduced and advanced under fluoroscopic guidance through the posterior right L4/5 neuroforamen to approximately the anterior aspect of the canal. Depth was confirmed on lateral view. Following negative aspiration, injection of approximately 1.5cc of Isovue 200 under live fluoroscopy in the AP view confirmed excellent flow along the nerve root, into the epidural space without vascular or intrathecal uptake observed Radiological data, including multiple fluoroscopic views of the lumbosacral spine, reveal a spinal needle at the right L4/5 posterior neuroforamen. Subsequent views show flow of contrast material flowing superiorly and inferiorly along the nerve root confirming epidural flow. Subsequently, a test dose of 1.5cc of 1% lidocaine solution was administered and patient was observed for two minutes for signs or symptoms of complications, including abdominal pain, shortness of breath, bilateral upper or lower extremity weakness, nausea and vomiting, prior to steroid injection. At this point, a total of 2cc or 10mg of dexamethasone and 6mg betamethasone was injected without incident. Attention was then refocused to the left L4/5 level where the identical procedure was replicated. The procedure tolerated the procedure well without signs or symptoms of complications prior to transfer to the recovery area continued monitoring without incident. The patient was then transferred to the recovery area where they were observed for an appropriate time after the injection. The patient reported a VAS score of 7 prior to the procedure and a post-procedure VAS of 0. POST OP INSTRUCTIONS The patient was provided a Pain Log to continue to record their response to the target-specific procedure prior to follow-up visit with their referring physician. Additionally, specific post-injection care instructions and a contact number to our office were provided if concerns arise regarding possible complications associated with the procedure are suspected.
--- NOTE | 2023-11-18 10:27 | PC.NURSE ---
Procedure Follow up call: left message @ [phone] Patient called back at [phone]. Denies questions, concerns. Encouraged to call the office if these arise.
== END 2023-11-17 08:45 | disposition home or self-care (01) ==
PROVIDERS: Family Provider Family Medicine; PCP Family Medicine; Referring Provider Physical Medicine & Rehabilitation; Visit Provider Physical Medicine & Rehabilitation
DX: M48.061 Spinal stenosis, lumbar region without neurogenic claudication (principal); M51.16 Intervertebral disc disorders with radiculopathy, lumbar region; M47.26 Other spondylosis with radiculopathy, lumbar region
CPT/HCPCS: 64483; 99152; J0702; J1100; J2250; J3490

== ENCOUNTER → 2024-05-18 15:21 | Outpatient (CLI) | payer BC, SELFPAY ==
--- NOTE | 2024-05-18 | DI.RAD.S_ITS ---
PROCEDURE: XR SHOULDER LT MIN 2V INDICATIONS: TENDONITIS TECHNIQUE: 2 views of the shoulder were acquired. COMPARISON: [facility], , SHOULDER MINIMUM 2VIEW RIGHT, 03/07/2016, 8:55. FINDINGS: Bones: No fractures or dislocations. No suspicious bony lesions. Visualized ribs appear intact. Mild acromioclavicular and minimal glenohumeral joint space narrowing. No erosions. Soft tissues: No suspicious soft tissue calcifications. IMPRESSION: Early arthritic changes at the acromioclavicular and glenohumeral joint spaces. Dictated by: Edith Rocha M.D. on 05/18/2024 at 16:12 Approved by: Edith Rocha M.D. on 05/18/2024 at 16:13
--- NOTE | 2024-05-18 15:25 | DI.RAD.S_ITS ---
PROCEDURE: XR FINGER RT MIN 2V INDICATIONS: OSTEOARTHRITIS TECHNIQUE: AP hand, 2 views of the 1st finger(s) acquired. COMPARISON: [facility], CR, FINGER LT, 03/07/2016, 8:55. FINDINGS: Bones: No fractures or dislocations. No suspicious bony lesions. Scattered mild to moderate IP and 1st CMC degenerative narrowing more prominent the 1st CMC joint. Minimal scattered periarticular osteophytes are present. No distinct erosions. Soft tissues: No suspicious soft tissue calcifications. IMPRESSION: Vuuj-vv-swovvjso arthritic changes most severe at the 1st CMC joint. Dictated by: Edith Rocha M.D. on 05/18/2024 at 16:20 Approved by: Edith Rocha M.D. on 05/18/2024 at 16:20
--- NOTE | 2024-05-18 15:25 | DI.RAD.S_ITS ---
PROCEDURE: XR FINGER LT MIN 2V INDICATIONS: OSTEOARTHRITIS TECHNIQUE: AP hand, 2 views of the 1st finger(s) acquired. COMPARISON: [facility], CR, XR HAND 3+ VIEWS BILATERAL, 07/18/2022, 7:18. [facility], CR, FINGER LT, 03/07/2016, 8:55. FINDINGS: Bones: No fractures or dislocations. No suspicious bony lesions. Hfxu-ni-bqzdxcuk scattered IP and 1st CMC degenerative narrowing is present. There are no distinct erosions. Very minimal scattered periarticular osteophytes are present. Overall changes are similar compared to prior exam. Soft tissues: No suspicious soft tissue calcifications. IMPRESSION: Scattered IP and 1st CMC arthritic change stable compared to prior exam. Dictated by: Edith Rocha M.D. on 05/18/2024 at 16:18 Approved by: Edith Rocha M.D. on 05/18/2024 at 16:20
== END ==
PROVIDERS: Family Provider Family Medicine; PCP Family Medicine; Referring Provider Family Medicine; Visit Provider Family Medicine
DX: M18.10 Unilateral primary osteoarthritis of first carpometacarpal joint, unspecified hand (principal); M75.82 Other shoulder lesions, left shoulder
CPT/HCPCS: 73030; 73140

== ENCOUNTER → 2024-08-31 09:16 | Outpatient (CLI) | payer BC, SELFPAY ==
--- NOTE | 2024-08-31 09:17 | DI.NM.S_ITS ---
PROCEDURE: NM SEA PERF SPECT REST & STR Rest and exercise myocardial perfusion SPECT with gated imaging and ejection fraction RADIOPHARMACEUTICAL: 12.1mCi Tc-99m sestamibi IV at rest and 27.4mCi Tc-99m sestamibi IV at peak exercise. A one day-protocol was performed. INDICATIONS: CHEST PAIN TECHNIQUE: Radiopharmaceutical was injected at peak stress test, and also at rest. SPECT images were obtained. SPECT myocardial perfusion images were displayed in short axis, horizontal long axis, and vertical long axis views. Gated images were reviewed using [employer] software. COMPARISON: None. CARDIAC STRESS: A standard Sanket treadmill exercise tolerance test was performed by the patient under the supervision of an attending staff. The patient exercised for 9 minutes and 0 seconds; functional aerobic impairment (NORTH) is -3%. Hemodynamic data: There is normal blood pressure and heart rate response to exercise stress. Patient achieved 90% of maximum predicted heart rate at peak exercise. Symptoms: Patient denied chest pain during exercise. EKG: No diagnostic EKG changes of ischemia; rare PVCs present. FINDINGS: Raw data: There is good myocardial labeling by radiotracer. No significant motion artifacts. Left ventricle function: Gated images demonstrate normal left ventricle wall thickening. No segmental wall motion abnormality. No transient ischemic dilation; TID is 0.96 (normal less than 1.3). The left ventricle resting end-diastolic volume is 140 mL. Left ventricle stress ejection fraction is 73%; normal values are above 45%. Myocardial perfusion: There is a mildly intense fixed distal inferior wall defect that resolves with prone imaging, suggesting artifact. No ischemia and no infarction present. IMPRESSION: Low risk, normal treadmill nuclear stress test from inducible ischemia standpoint. 1) Mildly intense fixed distal inferior wall defect that resolves with prone imaging, suggesting artifact. No ischemia and no infarction present. 2) Normal left ventricular size, wall motion, and systolic function (EF post stress 73%). 3) No diagnostic ST changes during exercise or recovery. 4) No angina during the study. 5) Average exercise capacity (9.7METs, NORTH -3%). 90% of maximum predicted heart rate reached. Appropriate BP response to exercise. 6) Compared to the nuclear stress test done 04/24/2021, no significant change in perfusion images. Dictated by: Elida Gibbs MD on 09/01/2024 at 12:24 Approved by: Elida Gibbs MD on 09/01/2024 at 12:28
== END ==
PROVIDERS: Family Provider Family Medicine; PCP Family Medicine; Referring Provider Family Medicine; Visit Provider Family Medicine
DX: R07.89 Other chest pain (principal)
CPT/HCPCS: 78452; 93017; A9502

== ENCOUNTER 2024-12-28 12:47 | Emergency (ER) | payer BC, SELFPAY ==
[2024-12-28] VITALS (17 sets, daily range): BP systolic 112–158; BP diastolic 71–87; PULSE 62–87; RESP 11–23; TEMP 36.8; O2SAT 92–98; BMI 33.2
--- NOTE | 2024-12-28 12:55 | DI.RAD.S_ITS ---
PROCEDURE: XR CHEST 1V INDICATIONS: chest pain TECHNIQUE: One view of the chest was acquired. COMPARISON: [facility], CR, XR CHEST 2V, 03/04/2023, 16:43. FINDINGS: Surgical changes and devices: None. Lungs and pleura: Mild pulmonary vascular congestion. No focal infiltrate. No pleural effusions or pneumothorax. Mediastinum: Mediastinal contours appear normal. Heart size is enlarged Bones and chest wall: No suspicious bony lesions. Overlying soft tissues appear unremarkable. IMPRESSION: Cardiomegaly and mild congestion. No focal infiltrate, pleural effusion or pneumothorax. Dictated by: Hussain Schafer M.D. on 12/28/2024 at 13:52 Approved by: Hussain Schafer M.D. on 12/28/2024 at 13:54
--- NOTE | 2024-12-28 12:56 | EKG_ITS ---
[address] [address] Test Date: 2024-12-28 Pat Name: Humberto Chew Department: Room: Gender: Male Him Specialist: JOSE ANGEL : 1965 Requested By: Order Number: [id number] Reading MD: Wilman Resendiz MD Measurements Intervals [place] Rate: 91 P: 27 NE: 146 QRS: 15 QRSD: 102 T: 19 QT: 390 QTc: 479 Interpretive Statements Sinus rhythm with occasional premature ventricular complexes Inferior infarct , age undetermined Electronically Signed On 12-29-2024 7:28:30 PST by Wilman Resendiz MD
[2024-12-28 13:20] LABS: Add Manual Diff / Slide Review NO; Basophils Absolute Auto 0 /uL (0-100); Basophils Percent Auto 0.4 % (0-2); Eosinophils Absolute Auto 100 /uL (0-450); Eosinophils Percent Auto 0.8 % (2-4); Hematocrit 45.4 % (41-53); Hemoglobin 15.4 g/dL (13.5-17.5); Lymphocytes Absolute Auto 1600 /uL (1100-4500); Lymphocytes Percent Auto 18.1 % (25-40); Mean Corpuscular Hemoglobin 31.5 PG (26-34); Mean Corpuscular Volume 92.6 fL (80-100); Monocytes Absolute Auto 800 /uL (0-900); Monocytes Percent Auto 9.3 % (3-14); Neutrophils Absolute Auto 6500 /uL (1500-7000); Neutrophils Percent Auto 71.4 % (50-75); Platelet Count 192 X10^3/uL (150-400); Red Cell Distribution Width 13.1 % (11.6-14.8); White Blood Cell Count 9.1 X10^3/uL (4.5-11.0)
[2024-12-28 13:28] LABS: INR 1.2 (0.9-1.3); Prothrombin Time 13.2 SECONDS (9.4-12.5)
[2024-12-28 13:31] LABS: PTT Partial Thromboplastin Tim 35 SECONDS (25.1-36.5)
[2024-12-28 13:32] LABS: Alanine Aminotransferase 81 IU/L (<50); Albumin 4.7 g/dL (3.5-5.0); Albumin Globulin Ratio 1.3 (1.0-2.8); Alkaline Phosphatase 66 U/L (38-126); Aspartate Aminotransferase 55 IU/L (17-59); BUN Creatinine Ratio 23.8 (6-22); Bilirubin Total 1.2 mg/dL (0.2-1.3); Blood Urea Nitrogen 24 mg/dL (9-20); Calcium 9.6 mg/dL (8.4-10.2); Carbon Dioxide 24 mmol/L (22-32); Chloride 103 mmol/L (98-107); Creatine Kinase 82 U/L (55-170); Estimated Glomerular Filt Rate > 60 mL/min (>60); Globulin 3.5 g/dL (1.7-4.1); Glucose 118 mg/dL (80-110); HEMOLYSIS < 15 (0-50); Lipase 75 U/L (23-300); Magnesium 1.8 mg/dL (1.6-2.3); Potassium 3.6 mmol/L (3.4-5.1); Sodium 138 mmol/L (137-145); Total Protein 8.2 g/dL (6.3-8.2)
[2024-12-28 13:45] LABS: NT-proBNP (BNP-Adult 18+) < 20 pg/mL (<125); Troponin I < 0.012 ng/mL (0.01-0.034)
[2024-12-28] MEDS: ASPIRIN 81 MG CHEW TAB 324 MG PO (13:59)
--- NOTE | 2024-12-28 15:47 | ED.CHESTPAIN ---
HPI - Chest Pain <Josie Orozco DO - Last Filed: 12/31/24 06:41> General Chief Complaint: Chest Pain Stated Complaint: chest pain,BP Time Seen by Provider: 12/28/24 15:35 Source: patient, RN notes reviewed and old records reviewed Mode of arrival: Family Vehicle Limitations: no limitations History of Present Illness HPI narrative: 59-year-old male history of hypertension, back pain, DVT was on Xarelto for a year has no an aspirin 81 mg daily. Did recently travel to [place] and back did take Xarelto while he was traveling. Patient states had describes as substernal chest pain last about 2 or 3 seconds has been intermittent today. 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 Patient states he has had episodes in the past kind of sporadically 1 or 2 times in the last 4 or 5 months. No fevers or chills, no diaphoresis. No shortness of breath. No palpitations. Describes substernal pain with no palpitations brief episodes. No syncope but some lightheadedness. Noted a little bit of diarrhea recently. No urinary symptoms. No new swelling of his extremities but does not intermittently gets some swelling. No history of DVT after long distance travel to [place] for work. Was found to have a DVT in his lower extremity was started on Xarelto was on this for about a year and transition to aspirin 81 mg daily. Was suspected to be from travel patient takes Xarelto when he travels only. Does take medication including meloxicam, hydrochlorothiazide, losartan, gabapentin and aspirin 81 mg daily. States only prior surgeries right rotator cuff repair. No known drug allergies. No tobacco, has 1 or 2 alcoholic drinks weekly went off work, when working does not typically drink. Works of 1 week on 1 week off schedule half of his weeks or days and have are nights. Occasionally uses THC/CBD gummy. Dr. Carrasquillo is his primary care physician. Patient notes family history of both his dad and uncles having aortic stenosis, states his father's had repair. Patient has had an echo about 6-7 years ago to evaluate for this. Related Data Home Medications Medication Instructions Recorded Confirmed magnesium aspartate-potassium 1 cap PO DAILY 11/02/19 02/29/24 aspartate 250 mg-250 mg capsule hzodbmrlndee-xfebioxh-koesdc 1 tab PO DAILY 11/02/19 02/29/24 tablet (Multivitamin 50 Plus tablet) aspirin 81 mg tablet,delayed 81 mg PO DAILY 06/29/23 02/29/24 release (Adult Low Dose Aspirin) hydrochlorothiazide 12.5 mg tablet 12.5 mg PO DAILY 11/02/23 02/29/24 losartan 100 mg tablet 100 mg PO DAILY 11/02/23 02/29/24 cyclobenzaprine 10 mg tablet 10 mg PO BID PRN 02/29/24 02/29/24 Previous Rx's Medication Instructions Recorded gabapentin 300 mg capsule 300 mg PO TID NERVE PAIN #120 caps 08/25/24 meloxicam 15 mg tablet 15 mg PO DAILY #90 tabs 09/14/24 Allergies Allergy/AdvReac Type Severity Reaction Status Date / Time No Known Drug Allergies Allergy Verified 02/29/24 08:09 Review of Systems <Josie Orozco DO - Last Filed: 12/31/24 06:41> Review of Systems ROS Unobtainable: All systems reviewed & are unremarkable except as noted in HPI and below Patient History <Josie Orozco DO - Last Filed: 12/31/24 06:41> Medical History Facet arthropathy, lumbar Lumbar radiculopathy Lumbar stenosis with neurogenic claudication Herniated nucleus pulposus, lumbar Social History Smoking Status: Never smoker Smoking Status: Never smoker Exam <Josie Orozco DO - Last Filed: 12/31/24 06:41> Narrative Exam Narrative: GENERAL: Alert and oriented x three, obese male in mild distress HEENT: Head normocephalic, atraumatic, EOMI, pupils reactive, face symmetric, moist mucous membranes NECK: Supple, full range of motion CARDIOVASCULAR: Regular rate and rhythm without murmurs, rubs or gallops. No JVD. Trace pedal edema. RESPIRATORY: Breath sounds equal bilaterally, no wheezes rales or rhonchi. No tachypnea or accessory muscle use. ABDOMEN: Soft, nontender. Normoactive bowel sounds all 4 quadrants. No guarding or rebound, rigidity, no mass : No CVA tenderness EXTREMITIES: Normal range of motion, no clubbing or edema. Neurovascularly intact NEUROLOGICAL: Cranial nerves II through XII grossly intact. Moving all extremities SKIN: Warm, dry, no petechiae, no rashes or lesions. Initial Vital Signs Initial Vital Signs: Vital Signs Temperature 98.2 F 12/28/24 13:00 Pulse Rate 87 12/28/24 13:00 Respiratory Rate 16 12/28/24 13:00 Blood Pressure 158/85 H 12/28/24 13:00 Pulse Oximetry 98 12/28/24 13:00 Oxygen Delivery Method Room Air 12/28/24 13:00 <Carlos Herbert MD - Last Filed: 12/29/24 04:08> Initial Vital Signs Initial Vital Signs: Vital Signs Temperature 98.2 F 12/28/24 13:00 Pulse Rate 87 12/28/24 13:00 Respiratory Rate 16 12/28/24 13:00 Blood Pressure 158/85 H 12/28/24 13:00 Pulse Oximetry 98 12/28/24 13:00 Oxygen Delivery Method Room Air 12/28/24 13:00 Course <Josie Orozco DO - Last Filed: 12/31/24 06:41> Orders Ordered: Discontinued Medications Acetaminophen (Acetaminophen 325 Mg Tablet) 975 mg PO NOW ONE Stop: 12/28/24 17:34 Last Admin: 12/28/24 17:59 Dose: 975 mg Documented By: SERAFIN Aspirin (Aspirin 81 Mg Chew Tab) 324 mg PO NOW ONE Stop: 12/28/24 12:56 Last Admin: 12/28/24 13:59 Dose: 243 mg Documented By: ZANA Vital Signs Vital signs: Vital Signs - 8 hr 12/28/24 13:00 12/28/24 13:04 12/28/24 13:04 Temperature 98.2 F Pulse Rate 87 80 Respiratory Rate 16 17 Blood Pressure 158/85 H 158/85 H Pulse Oximetry 98 95 Oxygen Delivery Method Room Air Room Air 12/28/24 13:30 12/28/24 13:30 12/28/24 14:00 Temperature Pulse Rate 82 Respiratory Rate 12 Blood Pressure 139/83 140/85 Pulse Oximetry 95 Oxygen Delivery Method 12/28/24 14:00 12/28/24 14:30 12/28/24 14:30 Temperature Pulse Rate 83 75 Respiratory Rate 17 14 Blood Pressure 130/78 Pulse Oximetry 94 94 Oxygen Delivery Method 12/28/24 15:00 12/28/24 15:00 12/28/24 15:30 Temperature Pulse Rate 72 73 Respiratory Rate 12 13 Blood Pressure 118/76 Pulse Oximetry 94 95 Oxygen Delivery Method 12/28/24 15:30 12/28/24 16:00 12/28/24 16:00 Temperature Pulse Rate 71 Respiratory Rate 14 Blood Pressure 119/77 116/74 Pulse Oximetry 94 Oxygen Delivery Method 12/28/24 16:30 12/28/24 16:30 12/28/24 17:00 Temperature Pulse Rate 72 72 Respiratory Rate 15 14 Blood Pressure 112/71 Pulse Oximetry 92 95 Oxygen Delivery Method 12/28/24 17:00 12/28/24 17:30 12/28/24 17:30 Temperature Pulse Rate 69 Respiratory Rate 11 L Blood Pressure 130/76 140/87 Pulse Oximetry 95 Oxygen Delivery Method 12/28/24 18:00 12/28/24 18:30 12/28/24 19:00 Temperature Pulse Rate 80 74 69 Respiratory Rate 23 19 14 Blood Pressure Pulse Oximetry 95 94 92 Oxygen Delivery Method 12/28/24 19:30 Temperature Pulse Rate 66 Respiratory Rate 16 Blood Pressure Pulse Oximetry 95 Oxygen Delivery Method Room Air <Carlos Herbert MD - Last Filed: 12/29/24 04:08> Orders Ordered: Discontinued Medications Acetaminophen (Acetaminophen 325 Mg Tablet) 975 mg PO NOW ONE Stop: 12/28/24 17:34 Last Admin: 12/28/24 17:59 Dose: 975 mg Documented By: SERAFIN Aspirin (Aspirin 81 Mg Chew Tab) 324 mg PO NOW ONE Stop: 12/28/24 12:56 Last Admin: 12/28/24 13:59 Dose: 243 mg Documented By: ZANA Vital Signs Vital signs: Vital Signs - 8 hr 12/28/24 13:00 12/28/24 13:04 12/28/24 13:04 Temperature 98.2 F Pulse Rate 87 80 Respiratory Rate 16 17 Blood Pressure 158/85 H 158/85 H Pulse Oximetry 98 95 Oxygen Delivery Method Room Air Room Air 12/28/24 13:30 12/28/24 13:30 12/28/24 14:00 Temperature Pulse Rate 82 Respiratory Rate 12 Blood Pressure 139/83 140/85 Pulse Oximetry 95 Oxygen Delivery Method 12/28/24 14:00 12/28/24 14:30 12/28/24 14:30 Temperature Pulse Rate 83 75 Respiratory Rate 17 14 Blood Pressure 130/78 Pulse Oximetry 94 94 Oxygen Delivery Method 12/28/24 15:00 12/28/24 15:00 12/28/24 15:30 Temperature Pulse Rate 72 73 Respiratory Rate 12 13 Blood Pressure 118/76 Pulse Oximetry 94 95 Oxygen Delivery Method 12/28/24 15:30 12/28/24 16:00 12/28/24 16:00 Temperature Pulse Rate 71 Respiratory Rate 14 Blood Pressure 119/77 116/74 Pulse Oximetry 94 Oxygen Delivery Method 12/28/24 16:30 12/28/24 16:30 12/28/24 17:00 Temperature Pulse Rate 72 72 Respiratory Rate 15 14 Blood Pressure 112/71 Pulse Oximetry 92 95 Oxygen Delivery Method 12/28/24 17:00 12/28/24 17:30 12/28/24 17:30 Temperature Pulse Rate 69 Respiratory Rate 11 L Blood Pressure 130/76 140/87 Pulse Oximetry 95 Oxygen Delivery Method 12/28/24 18:00 12/28/24 18:30 12/28/24 19:00 Temperature Pulse Rate 80 74 69 Respiratory Rate 23 19 14 Blood Pressure Pulse Oximetry 95 94 92 Oxygen Delivery Method 12/28/24 19:30 Temperature Pulse Rate 66 Respiratory Rate 16 Blood Pressure Pulse Oximetry 95 Oxygen Delivery Method Room Air MDM - Chest Pain <Josie Orozco, - Last Filed: 12/31/24 06:41> Lab Data 12/28/24 13:09 12/28/24 13:09 Labs: Lab Results 12/28/24 12/28/24 Range/Units 13:09 15:09 WBC 9.1 (4.5-11.0) X10^3/uL RBC 4.90 (4.5-5.9) X10^6/uL Hgb 15.4 (13.5-17.5) g/dL Hct 45.4 (41-53) % MCV 92.6 (80-100) fL MCH 31.5 (26-34) PG MCHC 34.0 (30-36) % RDW 13.1 (11.6-14.8) % Plt Count 192 (150-400) X10^3/uL Neut % (Auto) 71.4 (50-75) % Lymph % (Auto) 18.1 L (25-40) % Osborne % (Auto) 9.3 (3-14) % Eos % (Auto) 0.8 L (2-4) % Baso % (Auto) 0.4 (0-2) % Neut # (Auto) 6500 (8051-4010) /uL Lymph # (Auto) 1600 (9171-9200) /uL Osborne # (Auto) 800 (0-900) /uL Eos # (Auto) 100 (0-450) /uL Baso # (Auto) 0 (0-100) /uL PT 13.2 H (9.4-12.5) SECONDS INR 1.2 (0.9-1.3) APTT 35 (25.1-36.5) SECONDS Sodium 138 (137-145) mmol/L Potassium 3.6 (3.4-5.1) mmol/L Chloride 103 (98-107) mmol/L Carbon Dioxide 24 (22-32) mmol/L BUN 24 H (9-20) mg/dL Creatinine 1.01 (0.66-1.25) mg/dL Estimated GFR > 60 (>60) mL/min BUN/Creatinine Ratio 23.8 H (6-22) Glucose 118 H (80-110) mg/dL Calcium 9.6 (8.4-10.2) mg/dL Magnesium 1.8 (1.6-2.3) mg/dL Total Bilirubin 1.2 (0.2-1.3) mg/dL AST 55 (17-59) IU/L ALT 81 H (<50) IU/L Alkaline Phosphatase 66 (38-126) U/L Total Creatine Kinase 82 (55-170) U/L Troponin I < 0.012 < 0.012 (0.01-0.034) ng/mL NT-Pro-B Natriuret Pep < 20 (<125) pg/mL Total Protein 8.2 (6.3-8.2) g/dL Albumin 4.7 (3.5-5.0) g/dL Globulin 3.5 (1.7-4.1) g/dL Albumin/Globulin Ratio 1.3 (1.0-2.8) Lipase 75 (23-300) U/L Imaging Data Chest x-ray: Radiologist's Impression: Humberto Chew??59??M??1965 ? Allergy/Adv: No Known Drug Allergies Close Chest X-Ray (Signed) Hussain Schafer - 12/28/24 Myocardial Perfusion Scan Nuc Med (Signed) Elida Gibbs - 08/31/24 Finger X-Ray (Signed) Edith Rocha - 05/18/24 Finger X-Ray (Signed) Edith Rocha - 05/18/24 Shoulder X-Ray (Signed) Edith Rocha - 05/18/24 LS Transforaminal Injection (Signed) Eriberto Mcneal - 11/17/23 Injection Lumbar, Sacrum (Signed) Joseph Camargo - 08/25/23 Lumbar Spine X-Ray (Signed) Tod Reynolds - 06/29/23 Chest X-Ray (Signed) Daniel Kee - 03/04/23 Knee MRI (Signed) Hussain Schafer - 09/27/22 Knee X-Ray (Signed) Joseph Camargo - 09/23/22 Lumbar Spine MRI (Signed) Joseph Camargo - 08/20/22 Myocardial Perfusion Scan Nuc Med (Signed) Elida Gibbs - 04/24/21 Shoulder MRI (Signed) Hussain Schafer - 09/25/20 Cervical Spine MRI (Signed) Joseph Camargo - 09/25/20 Vascular Ultrasound (Signed) Fanta Mcneal - 11/01/19 Vascular Ultrasound (Signed) Mike Foley - 05/09/19 Vascular Ultrasound (Signed) Mike Foley - 03/02/19 Abdominal Arterial Study US (Signed) Gavino Wiley - 11/17/18 Launch?[facility] [address] [address] XRay Report Signed Patient: Humberto Chew MR#: [id number] : 1965 Acct:[id number] Age/Sex: 59 / M Date of Service: 12/28/24 Loc: ED Accession Number: [id number] Procedure: XR chest 1V Ordering Provider: Josie Orozco D.O. PROCEDURE: XR CHEST 1V INDICATIONS: chest pain TECHNIQUE: One view of the chest was acquired. COMPARISON: [facility], CR, XR CHEST 2V, 03/04/2023, 16:43. FINDINGS: Surgical changes and devices: None. Lungs and pleura: Mild pulmonary vascular congestion. No focal infiltrate. No pleural effusions or pneumothorax. Mediastinum: Mediastinal contours appear normal. Heart size is enlarged Bones and chest wall: No suspicious bony lesions. Overlying soft tissues appear unremarkable. IMPRESSION: Cardiomegaly and mild congestion. No focal infiltrate, pleural effusion or pneumothorax. Dictated by: Hussain Schafer M.D. on 12/28/2024 at 13:52 Approved by: Hussain Schafer M.D. on 12/28/2024 at 13:54 CT scan - chest: Radiologist's Impression: [place] [address] CT Scan Report Signed Patient: Humberto Chew MR#: [id number] : 1965 Acct:[id number] Age/Sex: 59 / M Date of Service: 12/28/24 Loc: ED Accession Number: [id number] Procedure: CT angio chest PE protocol Ordering Provider: Josie Orozco D.O. PROCEDURE: CT ANGIO CHEST PE PROTOCOL INDICATIONS: intermittent chest pain, hx dvt after travel TECHNIQUE: After the administration of intravenous contrast, 2 mm thick sections acquired from the pulmonary apices to the posterior costophrenic angles. 3-dimensional maximum intensity projection (MIP) coronal and sagittal reformats were then acquired through the thorax. For radiation dose reduction, the following was used: automated exposure control, adjustment of mA and/or kV according to patient size. COMPARISON: None. FINDINGS: Image quality: Diagnostic. Pulmonary arteries: Pulmonary arteries are normal in size, and demonstrate no intraluminal filling defects to suggest central pulmonary embolism. Lower Neck: No enlarged lymph nodes. Thyroid: No thyroid nodules which require sonographic follow up, per consensus guidelines. Axillae: No enlarged lymph nodes. Chest Wall: Unremarkable. Bones: Unremarkable. Lungs and Pleura: No pneumothorax or pleural effusions. No consolidation or suspicious nodules. Heart: Heart size is normal. No pericardial effusion. Thoracic Vessels: No aortic aneurysm. Mediastinum and Courtney: No enlarged lymph nodes. Esophagus: No wall thickening. Mild hiatal hernia. Upper Abdomen: Dependent luminal stones within the gallbladder. No wall thickening. Otherwise, visualized upper abdomen solid organs and bowel loops appear normal. IMPRESSION: No pulmonary embolus. No acute cardiopulmonary process. Dictated by: Edith Rocha M.D. on 12/28/2024 at 18:24 Approved by: Edith Rocha M.D. on 12/28/2024 at 18:26 ECG Data Attestation: I personally reviewed and interpreted this ECG as follows: Prior ECG tracings: not available for review Interpretation: Sinus rhythm occasional PVC, rate of 91 WI 146 QRS of 102 QTC of [address] elevation or depression. No priors for comparison. Repeat EKG shows sinus rhythm rate of 70, WI 158 QRS of 96 QTC of 453, no acute ST elevation or depression. No dynamic changes. 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 Does have some cardiac risk factors with hypertension but also has had history of DVT was on Xarelto for a year with suspect to be provoked by long-distance travel. Did not recently traveled [place] and took Xarelto while he was traveling but does not take it regularly. Labs show white count of 9.1 hemoglobin of 15 platelets of 192, coags are negative BUN 20 prior otherwise normal electrolytes, creatinine is 1.01 with a glucose of 118 ALT is 81 but normal bilirubin, AST and alk-phos with a normal lipase. Troponins less than 0.012 with a repeat troponin of less than 0.012 and a BNP less than 20. EKG shows sinus rhythm occasional PVCs, repeat shows sinus rhythm no dynamic changes. No priors for comparison. Chest x-ray shows cardiomegaly and mild congestion no focal infiltrate, pleural effusion or pneumothorax. CT angio chest negative for pulmonary embolism. No acute cardiopulmonary process. No pericardial effusion. Patient has follow up tomorrow with his primary care physician Dr. Carrasquillo. <Carlos Herbert MD - Last Filed: 12/29/24 04:08> Lab Data Labs: Lab Results 12/28/24 12/28/24 Range/Units 13:09 15:09 WBC 9.1 (4.5-11.0) X10^3/uL RBC 4.90 (4.5-5.9) X10^6/uL Hgb 15.4 (13.5-17.5) g/dL Hct 45.4 (41-53) % MCV 92.6 (80-100) fL MCH 31.5 (26-34) PG MCHC 34.0 (30-36) % RDW 13.1 (11.6-14.8) % Plt Count 192 (150-400) X10^3/uL Neut % (Auto) 71.4 (50-75) % Lymph % (Auto) 18.1 L (25-40) % Osborne % (Auto) 9.3 (3-14) % Eos % (Auto) 0.8 L (2-4) % Baso % (Auto) 0.4 (0-2) % Neut # (Auto) 6500 (7748-4451) /uL Lymph # (Auto) 1600 (8069-5886) /uL Osborne # (Auto) 800 (0-900) /uL Eos # (Auto) 100 (0-450) /uL Baso # (Auto) 0 (0-100) /uL PT 13.2 H (9.4-12.5) SECONDS INR 1.2 (0.9-1.3) APTT 35 (25.1-36.5) SECONDS Sodium 138 (137-145) mmol/L Potassium 3.6 (3.4-5.1) mmol/L Chloride 103 (98-107) mmol/L Carbon Dioxide 24 (22-32) mmol/L BUN 24 H (9-20) mg/dL Creatinine 1.01 (0.66-1.25) mg/dL Estimated GFR > 60 (>60) mL/min BUN/Creatinine Ratio 23.8 H (6-22) Glucose 118 H (80-110) mg/dL Calcium 9.6 (8.4-10.2) mg/dL Magnesium 1.8 (1.6-2.3) mg/dL Total Bilirubin 1.2 (0.2-1.3) mg/dL AST 55 (17-59) IU/L ALT 81 H (<50) IU/L Alkaline Phosphatase 66 (38-126) U/L Total Creatine Kinase 82 (55-170) U/L Troponin I < 0.012 < 0.012 (0.01-0.034) ng/mL NT-Pro-B Natriuret Pep < 20 (<125) pg/mL Total Protein 8.2 (6.3-8.2) g/dL Albumin 4.7 (3.5-5.0) g/dL Globulin 3.5 (1.7-4.1) g/dL Albumin/Globulin Ratio 1.3 (1.0-2.8) Lipase 75 (23-300) U/L Imaging Data Bilateral lower extremity venous Doppler: Radiologist's Impression: [address] [address] Ultrasound Report Signed Patient: Humberto Chew MR#: [id number] : 1965 Acct:[id number] Age/Sex: 59 / M Date of Service: 12/28/24 Loc: ED Accession Number: [id number] Procedure: US periph venous low extrem bi Ordering Provider: Josie Orozco D.O. PROCEDURE: US PERIPH VENOUS LOW EXTREM BI INDICATIONS: hx of dvt. TECHNIQUE: Real-time imaging, as well as color and pulse Doppler interrogation, were performed of the deep veins of both legs from the inguinal ligament to the popliteal fossa, with documentation of the visualized calf veins. COMPARISON: None. FINDINGS: Right: The common femoral, femoral, popliteal, and the visualized calf veins are normally compressible, and free of intraluminal thrombus. Color and pulse Doppler demonstrate normal phasic intravascular flow. There is normal augmentation response to distal compression maneuver. Left: The common femoral, femoral, popliteal, and the visualized calf veins are normally compressible, and free of intraluminal thrombus. Color and pulse Doppler demonstrate normal phasic intravascular flow. There is normal augmentation response to distal compression maneuver. IMPRESSION: No findings of deep venous thrombosis in either lower extremity. Dictated by: Edith Rocha M.D. on 12/28/2024 at 19:56 Approved by: Edith Rocha M.D. 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 Does have some cardiac risk factors with hypertension but also has had history of DVT was on Xarelto for a year with suspect to be provoked by long-distance travel. Did not recently traveled [place] and took Xarelto while he was traveling but does not take it regularly. Labs show white count of 9.1 hemoglobin of 15 platelets of 192, coags are negative BUN 20 prior otherwise normal electrolytes, creatinine is 1.01 with a glucose of 118 ALT is 81 but normal bilirubin, AST and alk-phos with a normal lipase. Troponins less than 0.012 with a repeat troponin of less than 0.012 and a BNP less than 20. EKG shows sinus rhythm occasional PVCs, repeat shows sinus rhythm no dynamic changes. No priors for comparison. Chest x-ray shows cardiomegaly and mild congestion no focal infiltrate, pleural effusion or pneumothorax. CT angio chest negative for pulmonary embolism. No acute cardiopulmonary process. No pericardial effusion. Patient has follow up tomorrow with his primary care physician Dr. Carrasquillo. 12/28/2024, 1830, [place]. Ultrasound Doppler lower extremity venous study pending. 59-year-old female had brief episode spontaneously resolved chest pain, history of pulmonary embolus, has had troponin x2, CT angiogram chest tonight showing no evidence of pneumothorax, recent travel to [place] for which he took Eliquis prophylaxis, but not on chronic anticoagulation. Some lower extremity pain, requests for venous ultrasound imaging, which has been ordered. Assumed care. Ultrasound Doppler study without DVT, copy of the report given to patient. See radiology report. Follow up as planned as an outpatient for now. Return precautions discussed. Home with family. Discharge Plan Departure Patient Disposition: Home Clinical Impression: Chest pain Activity Restrictions/Additional Instructions: Follow up tomorrow with Dr. Carrasquillo. Continue your home medications as prescribed. Please return for fevers, new or worsening chest pain, shortness of breath, lightheadedness or passing out, persistent vomiting, new swelling in your extremities or other new or concerning changes. Prescriptions: No Action gabapentin 300 mg capsule 300 mg PO TID MDD 4-300MG CAPS Qty: 120 1RF Rx Instructions: PT NEEDS TO TAKE 1-300MG IN AM AND AFTERNOON. THEN HE WILL TAKE 2-300MG CAPS AT NIGHT. PT NEEDS PA FOR MORE THEN 3-300MG CAPS. HE JUST FILLED IT LOCALLY BUT WANTS TO USE [facility]. PLEASE SEND PA THRU COVER MY MEDS. THANKS. HE JUST P/U RX AND PAID FOR THEM. THANKS! meloxicam 15 mg tablet 15 mg PO DAILY Qty: 90 2RF Rx Instructions: DON'T TAKE WITH OHTER NSAIDS. TAKE WITH FOOD Multivitamin 50 Plus Tablet 1 tab PO DAILY magnesium, potassium aspartate 250-250 mg Capsule 1 cap PO DAILY aspirin [Adult Low Dose Aspirin] 81 mg tablet,delayed release (DR/EC) 81 mg PO DAILY losartan 100 mg tablet 100 mg PO DAILY hydrochlorothiazide 12.5 mg tablet 12.5 mg PO DAILY cyclobenzaprine 10 mg tablet 10 mg PO BID PRN Referrals: Shelli Carrasquillo MD [Primary Care Provider] - Stand Alone Forms: Patient Portal/API/Survey
--- NOTE | 2024-12-28 15:52 | EKG_ITS ---
[address] [address] Test Date: 2024-12-28 Pat Name: Humberto Chew Department: Room: Gender: Male Miner Pick: JOSE ANGEL : 1965 Requested By: Order Number: [id number] Reading MD: Wilman Resendiz MD Measurements Intervals [place] Rate: 70 P: 30 NM: 158 QRS: 9 QRSD: 96 T: 23 QT: 420 QTc: 453 Interpretive Statements Normal sinus rhythm Inferior infarct , age undetermined Electronically Signed On 12-29-2024 7:28:42 PST by Wilman Resendiz MD
[2024-12-28 15:57] LABS: Troponin I < 0.012 ng/mL (0.01-0.034)
--- NOTE | 2024-12-28 17:29 | DI.CT.S_ITS ---
PROCEDURE: CT ANGIO CHEST PE PROTOCOL INDICATIONS: intermittent chest pain, hx dvt after travel TECHNIQUE: After the administration of intravenous contrast, 2 mm thick sections acquired from the pulmonary apices to the posterior costophrenic angles. 3-dimensional maximum intensity projection (MIP) coronal and sagittal reformats were then acquired through the thorax. For radiation dose reduction, the following was used: automated exposure control, adjustment of mA and/or kV according to patient size. COMPARISON: None. FINDINGS: Image quality: Diagnostic. Pulmonary arteries: Pulmonary arteries are normal in size, and demonstrate no intraluminal filling defects to suggest central pulmonary embolism. Lower Neck: No enlarged lymph nodes. Thyroid: No thyroid nodules which require sonographic follow up, per consensus guidelines. Axillae: No enlarged lymph nodes. Chest Wall: Unremarkable. Bones: Unremarkable. Lungs and Pleura: No pneumothorax or pleural effusions. No consolidation or suspicious nodules. Heart: Heart size is normal. No pericardial effusion. Thoracic Vessels: No aortic aneurysm. Mediastinum and Courtney: No enlarged lymph nodes. Esophagus: No wall thickening. Mild hiatal hernia. Upper Abdomen: Dependent luminal stones within the gallbladder. No wall thickening. Otherwise, visualized upper abdomen solid organs and bowel loops appear normal. IMPRESSION: No pulmonary embolus. No acute cardiopulmonary process. Dictated by: Edith Rocha M.D. on 12/28/2024 at 18:24 Approved by: Edith Rocha M.D. on 12/28/2024 at 18:26
[2024-12-28] MEDS: ACETAMINOPHEN 325 MG TABLET 975 MG PO (17:59)
--- NOTE | 2024-12-28 18:40 | DI.US.S_ITS ---
PROCEDURE: US PERIPH VENOUS LOW EXTREM BI INDICATIONS: hx of dvt. TECHNIQUE: Real-time imaging, as well as color and pulse Doppler interrogation, were performed of the deep veins of both legs from the inguinal ligament to the popliteal fossa, with documentation of the visualized calf veins. COMPARISON: None. FINDINGS: Right: The common femoral, femoral, popliteal, and the visualized calf veins are normally compressible, and free of intraluminal thrombus. Color and pulse Doppler demonstrate normal phasic intravascular flow. There is normal augmentation response to distal compression maneuver. Left: The common femoral, femoral, popliteal, and the visualized calf veins are normally compressible, and free of intraluminal thrombus. Color and pulse Doppler demonstrate normal phasic intravascular flow. There is normal augmentation response to distal compression maneuver. IMPRESSION: No findings of deep venous thrombosis in either lower extremity. Dictated by: Edith Rocha M.D. on 12/28/2024 at 19:56 Approved by: Edith Rocha M.D. on 12/28/2024 at 19:56
== END 2024-12-28 20:25 | disposition home or self-care (01) ==
PROVIDERS: Emergency Medicine; Emergency Provider Emergency Medicine; Family Provider Family Medicine; PCP Family Medicine
DX: R07.9 Chest pain, unspecified (principal); I10 Essential (primary) hypertension; Z79.01 Long term (current) use of anticoagulants
CPT/HCPCS: 36415; 71045; 71275; 80053; 82550; 83690; 83735; 83880; 84484; 85025; 85610; 85730; 93005; 93010; 93970; 99284; Q9967

== ENCOUNTER → 2025-01-03 06:55 | Outpatient (CLI) | payer BC, SELFPAY ==
--- NOTE | 2025-01-03 06:56 | DI.US.S_ITS ---
PROCEDURE: US ABDOMEN LIMITED INDICATIONS: FOLLOW UP CHOLELITHIASIS ON CT 12/28/24 TECHNIQUE: Real-time scanning was performed of the abdominal and retroperitoneal organs, with image documentation. COMPARISON: CT 12/28/2024. FINDINGS: Liver: Liver is normal in size and homogeneous in echotexture. There is increased hepatic echogenicity. Left hepatic lobe is not well visualized secondary to overlying bowel gas. Gallbladder: Cholelithiasis No wall thickening. No pericholecystic edema. Negative sonographic Sykes's sign. Biliary ducts: Intrahepatic bile ducts are non-dilated. Extrahepatic bile duct is not well visualized. Pancreas: Not well visualized. Miscellaneous: No free abdominal fluid. IMPRESSION: Increased hepatic echogenicity can be seen in the setting of hepatic steatosis. Cholelithiasis. No sonographic evidence of acute cholecystitis. Common bile duct is not well visualized. Approved by: Julia Holliday M.D.,Ph.D. on 01/05/2025 at 21:05
== END ==
PROVIDERS: Family Provider Family Medicine; PCP Family Medicine; Referring Provider Family Medicine; Visit Provider Family Medicine
DX: K80.20 Calculus of gallbladder without cholecystitis without obstruction (principal)
CPT/HCPCS: 76705

== ENCOUNTER → 2025-01-25 06:29 | Outpatient (CLI) | payer BC, SELFPAY ==
--- NOTE | 2025-01-25 06:30 | DI.ECHO.S_ITS ---
[facility] : : [address] : : [place] : : [id number] : : Phone: [phone] Echocardiogram Report + + :Name: CINDY PUTNAM Study Date: 01/25/2025 Height: 72 in : :Hospital ReadingLocation: Weight: 235 lb : : Gender: Male BSA: 2.3 m2 : :: 1965 Age: 59 yrs BP: 120/76 mmHg: :Reason For Study: CARDIOMEGALY : :Ordering Physician: JOHANA, : :CATHIE Performed By: Hemalatha Gardiner : :Referring: CATHIE VAUGHN : + + Interpretation Summary Normal sinus rhythm. Normal LV size, wall thickness, wall motion and LV systolic function. EF is 55-60%. Borderline RV enlargement which could be due to untreated AFSANEH. Otherwise normal chamber sizes Mild AI; otherwise no significant valvular abnormalities. No prior study available for comparison. Procedure: A two-dimensional transthoracic echocardiogram with color flow and Doppler was performed. The study quality was technically adequate. There is no prior echocardiogram noted for this patient. The patient was in sinus bradycardia with heart rates between 45-66 bpm during the exam. Left Ventricle: The left ventricle is normal in size and wall thickness. The ejection fraction is estimated to be 55-60%. Right Ventricle: Borderline right ventricular enlargement. The right ventricular systolic function is normal. Atria: The left atrial size is normal. Right atrial size is normal. There is no Doppler evidence for an interatrial shunt. Mitral Valve: The mitral valve leaflets appear to open well. There is no mitral regurgitation noted. Aortic Valve: The aortic valve is trileaflet. The aortic valve opens well. There is no aortic valve stenosis. There is mild aortic regurgitation. Tricuspid Valve: The tricuspid valve leaflets are thin and pliable. There is trace tricuspid regurgitation. The right ventricular systolic pressure is estimated to be at least 21 mmHg based on an estimated right atrial pressure of 3 mm Hg. Pulmonic Valve: The pulmonic valve leaflets are thin and pliable; valve motion is normal. There is mild pulmonic regurgitation. Great Vessels: The aortic root is normal size. The dimensions of the ascending aorta are normal. The IVC is of normal diameter and collapses greater than 50% with a sniff. This suggests a low right atrial pressure of 3 mm Hg. Pericardium/ Pleura There is no pericardial effusion. There is no pleural effusion. MMode/2D Measurements & Calculations LVIDd: 4.7 cm LVOT diam: 2.0 cm LVIDs: 3.0 cm Ao root diam: 3.3 cm FS: 37.0 % asc Aorta Diam: 3.4 cm EPSS: 0.52 cm Ao Arch Diam (Prox Trans): 3.0 cm IVSd: 0.97 cm LVPWd: 0.90 cm LV watson. diameter/BSA (cm/m^2): 2.1 LV sys. diameter/BSA (cm/m^2): 1.3 LA A2 area: 23.6 cm2 RA long axis: 5.7 cm LA A4 area: 19.1 cm2 RA area: 19.8 cm2 LA length (vol): 5.6 cm RA vol: 58.5 ml LA vol: 68.0 ml RA : 25.6 ml/m2 LA vol index: 29.8 ml/m2 IVC diam: 1.6 cm RVD1 (basal): 4.0 cm TAPSE: 1.9 cm Doppler Measurements & Calculations Ao V2 max: 129.6 cm/sec LVOT Max Saurav: 91.5 cm/sec Ao V2 mean: 91.2 cm/sec LV V1 max P.3 mmHg Ao max P.7 mmHg LV V1 VTI: 19.3 cm Ao mean P.6 mmHg CANDE(I,D): 2.1 cm2 Ao V2 VTI: 29.2 cm CANDE(V,D): 2.2 cm2 sev ratio: 0.66 CANDE indexed to BSA (cm^2/m^2): 0.92 MV E max saurav: 80.6 cm/sec TR max saurav: 219.8 cm/sec MV A max saurav: 79.4 cm/sec TR max P.3 mmHg MV E/A: 1.0 PA V2 max: 107.3 cm/sec Med Peak E' Saurav: 9.1 cm/sec PA V2 mean: 73.0 cm/sec E/E' med: 8.9 PA mean P.3 mmHg Lat Peak E' Saurav: 11.8 cm/sec PA pr(Accel): 14.8 mmHg E/E' lat: 6.8 E/e' average: 7.9 MV dec time: 0.22 sec SV(LVOT): 61.2 ml Electronically signed by: Zarina Gamboa M.D. on Reading Physician:01/26/2025 03:54 AM
== END ==
PROVIDERS: Family Provider Family Medicine; PCP Family Medicine; Referring Provider Family Medicine; Visit Provider Family Medicine
DX: I35.1 Nonrheumatic aortic (valve) insufficiency (principal); I37.1 Nonrheumatic pulmonary valve insufficiency; R00.1 Bradycardia, unspecified; I51.7 Cardiomegaly
CPT/HCPCS: 93306

== ENCOUNTER → 2025-05-16 11:31 | Outpatient (CLI) | payer BC, SELFPAY ==
--- NOTE | 2025-05-16 11:33 | DI.US.S_ITS ---
PROCEDURE: US PERIP VENOUS LOW EXTREM LT INDICATIONS: DVT r/o TECHNIQUE: Real-time imaging, as well as color and pulse Doppler interrogation, were performed of the lower extremity deep veins from the inguinal ligament to the popliteal fossa, with documentation of the visualized calf veins. COMPARISON: [facility], , [facility] VENOUS LOW EXTREM LT, 11/01/2019, 8:00. FINDINGS: The common femoral, femoral, popliteal, and the visualized calf veins are normally compressible, and free of intraluminal thrombus. Color and pulse Doppler demonstrate normal phasic intraluminal flow. There is normal augmentation response to distal compression maneuver. IMPRESSION: No findings of lower extremity deep venous thrombosis. Dictated by: Yovany Smith M.D. on 05/16/2025 at 13:07 Approved by: Yovany Smith M.D. on 05/16/2025 at 13:07
== END ==
PROVIDERS: Family Provider Family Medicine; PCP Family Medicine; Referring Provider Family Medicine; Visit Provider Family Medicine
DX: R22.42 Localized swelling, mass and lump, left lower limb (principal); Z86.718 Personal history of other venous thrombosis and embolism
CPT/HCPCS: 93971